=== PATIENT | male | born 1945 | race Asian ===

== ENCOUNTER 2020-11-03 15:59 | Inpatient (IN) | payer MEDICAID, OTHER, SELFPAY ==
--- NOTE | ~2020-11-03 | US_ITS ---
EXAMINATION: NONINVASIVE ASSESSMENT OF THE ARTERIES OF THE LEFT LOWER EXTREMITY Gordo Be MD CLINICAL INFORMATION: Cold left lower extremity with weak pulses TECHNIQUE: Left lower extremity duplex ultrasound was performed with velocity measurements and waveform analysis in the common femoral arteries, profunda femoris arteries, proximal mid and distal superficial femoral arteries, popliteal arteries and tibial vessels. This study was performed only at rest. COMPARISON: None FINDINGS: Velocities in cm/sec and phasicity as well as the presence of plaque are reported below: LEFT LEG: Mild to moderate plaque is present proximally. Biphasic flow is noted from the common femoral artery down to the distal SFA/popliteal. Thrombus appears to be present in the tibioperoneal trunk and peroneal artery with reconstituted posterior tibial artery with monophasic flow. Common Femoral: 107 Profunda Femoris: 48 Proximal SFA: 71 Mid SFA: 66 Distal SFA: 58 Popliteal: 26 Posterior tibial: 12.6 Peroneal artery: Acute thrombus is present in the peroneal artery with minimal monophasic flow demonstrated US/US arterial duplex LE LT IMPRESSION: Acute thrombus is present in the tibioperoneal trunk and the peroneal is essentially with monophasic flow noted in the distal reconstituted posterior tibial artery. Anterior tibial artery was not visualized.
--- NOTE | ~2020-11-03 | US_ITS ---
EXAMINATION: US VENOUS ULTRASOUND WITH DOPPLER LOWER EXTREMITY, LEFT CLINICAL INFORMATION: DVT question COMPARISON: None TECHNIQUE: Ultrasound of the deep veins is performed from the hip to the calf with compression sonography and color and pulse Doppler assessment. Spectral analysis with color-flow imaging is performed. FINDINGS: There is normal venous compression and respiratory variation and augmented flow. The visualized common femoral vein, superficial femoral vein, profunda femoral vein, popliteal vein, and the trifurcation region shows no evidence of deep venous thrombosis. There is no significant popliteal fossa cyst. If the patient's symptoms persist, followup ultrasound in 5 days 7 days might be of value to exclude proximal propagation from a non-visualized calf vein. US/US venous duplex LE LT IMPRESSION: No DVT demonstrated in the left lower extremity.
[2020-11-03 16:28] VITALS: BP 148/77; PULSE 113; RESP 16; TEMP 36.7; O2SAT 99; BMI 26.9
--- NOTE | 2020-11-03 16:29 | ED_ITS ---
HPI - Arrhythmia/Palpitations General Chief Complaint: Arrhythmia/Palpitations Stated Complaint: blood clot? Time Seen by Provider: 11/03/20 16:27 Source: patient and family (son interpreting) Mode of arrival: ambulatory Limitations: language barrier (Pt speaks philipino) History of Present Illness HPI narrative: Pt is 75yo M with past med hx of afib on plavix, stroke x2 2006, 2010, HTN, who has left lower leg pain x 2 days, concern for DVT, sent here from urgent care. Denies chest pain, sob or trouble breathing. Related Data Home Medications Medication Instructions Recorded Confirmed amlodipine 5 mg tablet 1 tab PO DAILY 11/03/20 11/03/20 atorvastatin 40 mg tablet 1 tab PO DAILY 11/03/20 11/03/20 clopidogrel 75 mg tablet 1 tab PO DAILY 11/03/20 11/03/20 diclofenac sodium 1 % topical gel 2 g TOPICAL TID 11/03/20 11/03/20 hydrochlorothiazide 12.5 mg capsule 1 cap PO DAILY 11/03/20 11/03/20 losartan 100 mg tablet 1 tab PO DAILY 11/03/20 11/03/20 Allergies Allergy/AdvReac Type Severity Reaction Status Date / Time No Known Allergies Allergy Verified 11/03/20 16:33 [facility] Past Medical History Medical History CVA (cerebral vascular accident) Hypertension Social History Social History (Updated 11/04/20 @ 05:40 by Michele Fernandez MD) Alcohol intake: never Patient Tobacco Use Status: Never used Tobacco Currently Displaying Signs/Symptoms of Drug Intoxication Withdrawal: No Advance Directives: No Advance Directives Information Provided: Yes Do you have thoughts of harming others: None Do you have a plan to hurt others: No Plan service: No Current occupational status: retired Physical Exam Vital Signs: Vital Signs: Last Vital Signs Temp 97.7 F 11/05/20 23:14 Pulse 71 11/05/20 23:14 Resp 15 11/05/20 23:14 BP 137/89 11/05/20 23:14 Pulse Ox 96 11/05/20 23:14 Body Mass Index 27.6 Course Course Course Narrative: Rapid medical exam, pt sent here from for DVT r/o, pt in afib with rvr, left lower ext cold with faint pulses, ordered labs, both art and venous US. HPI, labs and futher workup/eval to be done by ED provider. MDM - Arrhythmia/Palpitations Lab Data Result diagrams: 11/05/20 03:24 11/05/20 03:24 Labs: Lab Results 11/03/20 11/03/20 11/03/20 Range/Units 16:50 16:50 16:51 WBC 7.4 (4.8-10.8) X10*3/uL RBC 4.76 (4.60-5.80) X10*6/uL Hgb 14.9 (14.0-18.0) g/dl Hct 44.1 (42-52) % MCV 92.6 (80-98) fL MCH 31.3 (27.0-33.0) pg MCHC 33.8 (31.0-36.0) g/dl RDW 13.3 (11.0-16.0) % Plt Count 192 (160-400) X10*3/uL MPV 10.1 (9.4-12.4) fL Immature Gran % (Auto) 0.3 (0.0-0.4) % Neut % (Auto) 69.7 (45-73) % Lymph % (Auto) 21.8 (20-40) % [place] % (Auto) 6.9 (2-11) % Eos % (Auto) 0.8 (0-4) % Baso % (Auto) 0.5 (0-2) % Lymph # (Auto) 1.6 (1.2-4.9) X10*3/uL [place] # (Auto) 0.5 (0.1-1.2) X10*3/uL Eos # (Auto) 0.1 (0.0-0.4) X10*3/uL Baso # (Auto) 0.0 (0.0-0.2) X10*3/uL Abs Immat Gran (auto) 0.02 (0.00-0.03) X10*3/uL Absolute Neuts (auto) 5.2 (2.0-8.3) X10*3/uL Absolute Nucleated RBC 0.000 (0.0-0.012) X10*3/uL Nucleated RBC % (auto) 0.0 (0.0-0.2) /100WBC PT 11.3 (9.9-13.0) SEC INR 1.0 (0.9-1.1) APTT 27.4 (24.1-38.0) SEC D-Dimer 1342 NG/ML Sodium 140 (135-145) mmol/L Potassium 4.1 (3.3-5.1) mmol/L Chloride 104 (96-108) mmol/L Carbon Dioxide 25 (22-29) mmol/L Anion Gap 15 (12-20) BUN 18 H (9-16) mg/dL Creatinine 1.60 H (0.5-1.4) mg/dL Estim Creat Clear Calc 36.1 Estimated GFR 42 Random Glucose 117 H (60-115) mg/dL Calcium 9.7 (8.4-10.2) mg/dL Total Bilirubin 1.7 H (0.0-1.0) mg/dL AST 15 (5-37) U/L ALT 14 (0-40) U/L Alkaline Phosphatase 49 (39-117) U/L Troponin I High Sens (<3.5-35.0) ng/L B-Natriuretic Peptide (<100) pg/mL Total Protein 8.1 H (6.5-8.0) g/dL Albumin 4.8 (3.5-5.0) g/dL COVID-19 (GILLIAN) (Negative) COVID-19 Clin Com 11/03/20 11/03/20 Range/Units 16:51 23:53 WBC (4.8-10.8) X10*3/uL RBC (4.60-5.80) X10*6/uL Hgb (14.0-18.0) g/dl Hct (42-52) % MCV (80-98) fL MCH (27.0-33.0) pg MCHC (31.0-36.0) g/dl RDW (11.0-16.0) % Plt Count (160-400) X10*3/uL MPV (9.4-12.4) fL Immature Gran % (Auto) (0.0-0.4) % Neut % (Auto) (45-73) % Lymph % (Auto) (20-40) % Clinch % (Auto) (2-11) % Eos % (Auto) (0-4) % Baso % (Auto) (0-2) % Lymph # (Auto) (1.2-4.9) X10*3/uL [place]inch # (Auto) (0.1-1.2) X10*3/uL Eos # (Auto) (0.0-0.4) X10*3/uL Baso # (Auto) (0.0-0.2) X10*3/uL Abs Immat Gran (auto) (0.00-0.03) X10*3/uL Absolute Neuts (auto) (2.0-8.3) X10*3/uL Absolute Nucleated RBC (0.0-0.012) X10*3/uL Nucleated RBC % (auto) (0.0-0.2) /100WBC PT (9.9-13.0) SEC INR (0.9-1.1) APTT (24.1-38.0) SEC D-Dimer NG/ML Sodium (135-145) mmol/L Potassium (3.3-5.1) mmol/L Chloride (96-108) mmol/L Carbon Dioxide (22-29) mmol/L Anion Gap (12-20) BUN (9-16) mg/dL Creatinine (0.5-1.4) mg/dL Estim Creat Clear Calc Estimated GFR Random Glucose (60-115) mg/dL Calcium (8.4-10.2) mg/dL Total Bilirubin (0.0-1.0) mg/dL AST (5-37) U/L ALT (0-40) U/L Alkaline Phosphatase (39-117) U/L Troponin I High Sens 6.1 (<3.5-35.0) ng/L B-Natriuretic Peptide 244 H (<100) pg/mL Total Protein (6.5-8.0) g/dL Albumin (3.5-5.0) g/dL COVID-19 (GILLIAN) Negative (Negative) COVID-19 Clin Com See Note Discharge Plan Discharge Clinical Impression: Thrombosis of artery of left lower extremity Atrial fibrillation Qualifiers: Atrial fibrillation type: unspecified Qualified Code(s): I48.91 - Unspecified atrial fibrillation Patient Disposition: Admitted As Inpatient Interventions: Admission Worksheet (ED) Last Done: 11/04/20 10:34 Discharge Date/Time: 11/04/20 10:35
--- NOTE | 2020-11-03 16:38 | ECG_ITS ---
Test Reason : BLOOD CLOT Blood Pressure : / mmHG Vent. Rate : 117 BPM Atrial Rate : 125 BPM P-R Int : 000 ms QRS Dur : 084 ms QT Int : 332 ms P-R-T Axes : 000 062 004 degrees QTc Int : 463 ms Atrial fibrillation with rapid ventricular response Abnormal ECG No previous ECGs available Referred By: Shanta Perez Electronically Signed By:KATARZYNA NAIK
[2020-11-03 16:57] LABS: MANUAL DIFF FLAG NO
[2020-11-03 16:59] LABS: Basophils Percent Auto 0.5 % (0-2); Eosinophils Absolute Auto 0.1 X10*3/uL (0.0-0.4); Eosinophils Percent Auto 0.8 % (0-4); Hematocrit 44.1 % (42-52); Hemoglobin 14.9 g/dl (14.0-18.0); Imm Gran Abs Auto 0.02 X10*3/uL (0.00-0.03); Imm Gran Pct Auto 0.3 % (0.0-0.4); Lymphocytes Absolute Auto 1.6 X10*3/uL (1.2-4.9); Lymphocytes Percent Auto 21.8 % (20-40); Mean Corpuscular HGB Conc 33.8 g/dl (31.0-36.0); Mean Corpuscular Hemoglobin 31.3 pg (27.0-33.0); Mean Corpuscular Volume 92.6 fL (80-98); Mean Platelet Volume 10.1 fL (9.4-12.4); Monocytes Absolute Auto 0.5 X10*3/uL (0.1-1.2); Monocytes Percent Auto 6.9 % (2-11); Neutrophils Absolute Auto 5.2 X10*3/uL (2.0-8.3); Neutrophils Percent Auto 69.7 % (45-73); Platelet Count 192 X10*3/uL (160-400); Red Blood Count 4.76 X10*6/uL (4.60-5.80); Red Cell Distribution Width 13.3 % (11.0-16.0); White Blood Count 7.4 X10*3/uL (4.8-10.8)
[2020-11-03 17:15] LABS: D Dimer 1342 NG/ML
[2020-11-03 17:27] LABS: B Type Natriuretic Peptide 244 pg/mL (<100); Troponin-I High Sensitivity 6.1 ng/L (<3.5-35.0)
[2020-11-03 17:50] LABS: Alanine Aminotransferase 14 U/L (0-40); Albumin Level 4.8 g/dL (3.5-5.0); Alkaline Phosphatase 49 U/L (39-117); Anion Gap 15 (12-20); Aspartate Amino Transferase 15 U/L (5-37); Bilirubin Total 1.7 mg/dL (0.0-1.0); Blood Urea Nitrogen 18 mg/dL (9-16); Calcium 9.7 mg/dL (8.4-10.2); Carbon Dioxide 25 mmol/L (22-29); Chloride 104 mmol/L (96-108); Creatinine Clr Calc Pharmacy 36.1; Estimated Glomerular Filt Rate 42; Glucose Random 117 mg/dL (60-115); Potassium 4.1 mmol/L (3.3-5.1); Sodium 140 mmol/L (135-145); Total Protein 8.1 g/dL (6.5-8.0)
[2020-11-03 18:03] LABS: Prothrombin Time 11.3 SEC (9.9-13.0)
[2020-11-03 18:06] LABS: Partial Thromboplastin Time 27.4 SEC (24.1-38.0)
--- NOTE | 2020-11-03 21:15 | ED.ARRPALP ---
HPI - Arrhythmia/Palpitations General Chief Complaint: Arrhythmia/Palpitations Stated Complaint: blood clot? Time Seen by Provider: 11/03/20 16:27 Source: patient and family (son interpreting) Mode of arrival: ambulatory Limitations: language barrier (Pt speaks philipino) History of Present Illness HPI narrative: Patient history of hypertension CVA on Plavix since yesterday evening noticed pain in the left calf area felt like something ripping it off continued all day today went to see in walk-in clinic noticed to have cold left lower extremity without any cyanosis and atrial fibrillation which is new to the patient patient does not feel any palpitation no chest pain no shortness of breath patient able to feel touch and pain sensation on left leg able to move and ambulate Related Data Allergies Allergy/AdvReac Type Severity Reaction Status Date / Time No Known Allergies Allergy Verified 11/03/20 16:33 Review of Systems Review of Systems: Yes all other systems are reviewed and are negative [facility] Past Medical History Medical History Afib Hypertension Social History Social History Advance Directives: No Advance Directives Information Provided: Yes Physical Exam Vital Signs: Vital Signs: Last Vital Signs Temp 98.7 F 11/03/20 21:17 Pulse 119 H 11/03/20 21:17 Resp 18 11/03/20 21:17 BP 154/95 H 11/03/20 21:17 Pulse Ox 97 11/03/20 21:17 Body Mass Index 27.6 Appearance: Alert. Oriented X3. No acute distress. Eyes: PERRLA, No Nystagmus ENT: Pharynx normal. Oral Mucosa moist Neck: Normal inspection. Neck supple. CVS: Irregularly regular heart rate, no murmur gallop, Pulses normal. Respiratory: No respiratory distress. Equal air entry bilateral, no wheezing/rales/rhonchi Abdomen: Soft and nontender. Bowel sounds are present, no mass palpable Skin: Skin warm and dry. Normal skin color. Normal skin turgor. Extremities: No lower extremity edema. No calf tenderness left leg colder than the right absent dorsalis pedis and posterior tibial on left leg, no cyanosis Neuro: Oriented X 3. No motor deficit. No sensory deficit.No cerebellar signs , cranial nerves II-XII intact MDM - Arrhythmia/Palpitations MDM Narrative Medical decision making narrative: Patient new onset atrial fibrillation with acute left leg arterial thrombus on Plavix. Heart rate is controlled at this time. Case discussed with Dr. Gregory vascular surgeon no need for surgery for arterial thrombus in left leg managed by anticoagulation. Patient does not have any motor loss or sensory loss of left leg secondary to thrombus no cyanosis seems to have good collateral circulation. Will admit patient for further evaluation for patient's record his creatinine was 0.9 on 10/31 and today it is 1.6 etiology not clear , will admit patient Medical Records Attestation: I reviewed the patient's medical records. Lab Data Attestation: I reviewed the patient's lab results. Result diagrams: 11/03/20 16:50 11/03/20 16:50 Labs: Lab Results 11/03/20 11/03/20 11/03/20 Range/Units 16:50 16:50 16:51 WBC 7.4 (4.8-10.8) X10*3/uL RBC 4.76 (4.60-5.80) X10*6/uL Hgb 14.9 (14.0-18.0) g/dl Hct 44.1 (42-52) % MCV 92.6 (80-98) fL MCH 31.3 (27.0-33.0) pg MCHC 33.8 (31.0-36.0) g/dl RDW 13.3 (11.0-16.0) % Plt Count 192 (160-400) X10*3/uL MPV 10.1 (9.4-12.4) fL Immature Gran % (Auto) 0.3 (0.0-0.4) % Neut % (Auto) 69.7 (45-73) % Lymph % (Auto) 21.8 (20-40) % [place] % (Auto) 6.9 (2-11) % Eos % (Auto) 0.8 (0-4) % Baso % (Auto) 0.5 (0-2) % Lymph # (Auto) 1.6 (1.2-4.9) X10*3/uL [place] # (Auto) 0.5 (0.1-1.2) X10*3/uL Eos # (Auto) 0.1 (0.0-0.4) X10*3/uL Baso # (Auto) 0.0 (0.0-0.2) X10*3/uL Abs Immat Gran (auto) 0.02 (0.00-0.03) X10*3/uL Absolute Neuts (auto) 5.2 (2.0-8.3) X10*3/uL Absolute Nucleated RBC 0.000 (0.0-0.012) X10*3/uL Nucleated RBC % (auto) 0.0 (0.0-0.2) /100WBC PT 11.3 (9.9-13.0) SEC INR 1.0 (0.9-1.1) APTT 27.4 (24.1-38.0) SEC D-Dimer 1342 NG/ML Sodium 140 (135-145) mmol/L Potassium 4.1 (3.3-5.1) mmol/L Chloride 104 (96-108) mmol/L Carbon Dioxide 25 (22-29) mmol/L Anion Gap 15 (12-20) BUN 18 H (9-16) mg/dL Creatinine 1.60 H (0.5-1.4) mg/dL Estim Creat Clear Calc 36.1 Estimated GFR 42 Random Glucose 117 H (60-115) mg/dL Calcium 9.7 (8.4-10.2) mg/dL Total Bilirubin 1.7 H (0.0-1.0) mg/dL AST 15 (5-37) U/L ALT 14 (0-40) U/L Alkaline Phosphatase 49 (39-117) U/L Troponin I High Sens (<3.5-35.0) ng/L B-Natriuretic Peptide (<100) pg/mL Total Protein 8.1 H (6.5-8.0) g/dL Albumin 4.8 (3.5-5.0) g/dL 11/03/20 Range/Units 16:51 WBC (4.8-10.8) X10*3/uL RBC (4.60-5.80) X10*6/uL Hgb (14.0-18.0) g/dl Hct (42-52) % MCV (80-98) fL MCH (27.0-33.0) pg MCHC (31.0-36.0) g/dl RDW (11.0-16.0) % Plt Count (160-400) X10*3/uL MPV (9.4-12.4) fL Immature Gran % (Auto) (0.0-0.4) % Neut % (Auto) (45-73) % Lymph % (Auto) (20-40) % [place] % (Auto) (2-11) % Eos % (Auto) (0-4) % Baso % (Auto) (0-2) % Lymph # (Auto) (1.2-4.9) X10*3/uL [place] # (Auto) (0.1-1.2) X10*3/uL Eos # (Auto) (0.0-0.4) X10*3/uL Baso # (Auto) (0.0-0.2) X10*3/uL Abs Immat Gran (auto) (0.00-0.03) X10*3/uL Absolute Neuts (auto) (2.0-8.3) X10*3/uL Absolute Nucleated RBC (0.0-0.012) X10*3/uL Nucleated RBC % (auto) (0.0-0.2) /100WBC PT (9.9-13.0) SEC INR (0.9-1.1) APTT (24.1-38.0) SEC D-Dimer NG/ML Sodium (135-145) mmol/L Potassium (3.3-5.1) mmol/L Chloride (96-108) mmol/L Carbon Dioxide (22-29) mmol/L Anion Gap (12-20) BUN (9-16) mg/dL Creatinine (0.5-1.4) mg/dL Estim Creat Clear Calc Estimated GFR Random Glucose (60-115) mg/dL Calcium (8.4-10.2) mg/dL Total Bilirubin (0.0-1.0) mg/dL AST (5-37) U/L ALT (0-40) U/L Alkaline Phosphatase (39-117) U/L Troponin I High Sens 6.1 (<3.5-35.0) ng/L B-Natriuretic Peptide 244 H (<100) pg/mL Total Protein (6.5-8.0) g/dL Albumin (3.5-5.0) g/dL Imaging Data Arterial Doppler: Radiologist's impression: [address] [address] Ultrasound Report Signed Patient: Waqas Birch MR#: [id number] : 1945 Acct:[id number] Age/Sex: 75 / M ADM Date: 11/03/20 Loc: .ED Attending Dr: Ordering Physician: Shanta Perez PA-C Date of Service: 11/03/20 Procedure(s): US arterial duplex LE LT Accession Number(s): [id number] cc: Shanta Perez PA-C~ EXAMINATION: NONINVASIVE ASSESSMENT OF THE ARTERIES OF THE LEFT LOWER EXTREMITY Gordo Be MD CLINICAL INFORMATION: Cold left lower extremity with weak pulses TECHNIQUE: Left lower extremity duplex ultrasound was performed with velocity measurements and waveform analysis in the common femoral arteries, profunda femoris arteries, proximal mid and distal superficial femoral arteries, popliteal arteries and tibial vessels. This study was performed only at rest. COMPARISON: None FINDINGS: Velocities in cm/sec and phasicity as well as the presence of plaque are reported below: LEFT LEG: Mild to moderate plaque is present proximally. Biphasic flow is noted from the common femoral artery down to the distal SFA/popliteal. Thrombus appears to be present in the tibioperoneal trunk and peroneal artery with reconstituted posterior tibial artery with monophasic flow. Common Femoral: 107 Profunda Femoris: 48 Proximal SFA: 71 Mid SFA: 66 Distal SFA: 58 Popliteal: 26 Posterior tibial: 12.6 Peroneal artery: Acute thrombus is present in the peroneal artery with minimal monophasic flow demonstrated US/US arterial duplex LE LT IMPRESSION: Acute thrombus is present in the tibioperoneal trunk and the peroneal is essentially with monophasic flow noted in the distal reconstituted posterior tibial artery. Anterior tibial artery was not visualized. Dictated By: GORDO BE MD Signed By: <Electronically signed by GORDO BE MD in OV> 11/03/202023 DD/ 163 TD/TT:? [employer] Mechanic: SS ECG Data Attestation: I personally reviewed and interpreted this ECG as follows: Interpretation: Atrial fibrillation with ventricular rate 117 beats per minute no acute ST T wave changes no acute ischemia no previous EKG available Discharge Plan Discharge Clinical Impression: Thrombosis of artery of left lower extremity Atrial fibrillation Qualifiers: Atrial fibrillation type: unspecified Qualified Code(s): I48.91 - Unspecified atrial fibrillation Patient Disposition: Admitted As Inpatient
[2020-11-03 21:17] VITALS: BP 154/95; PULSE 119; RESP 18; TEMP 37.1; O2SAT 97
--- NOTE | 2020-11-03 22:24 | PC.NURSE ---
pt is a very difficult stick and u/s was used to find an IV. Heparin being hung at this time. MD aware of delay of Heparin.
[2020-11-03 22:29] VITALS: BMI 27.6
[2020-11-03] MEDS: Heparin Sodium,Porcine/1/2NS 25,000 UNIT/250 ML IV.SOLN 10.92 UNIT IVCONT (22:30)
[2020-11-03] MEDS: Heparin Sodium,Porcine 5,000 UNIT/ML VIAL 5000 UNIT IVPUSH (22:31)
--- NOTE | 2020-11-03 22:35 | PC.NURSE ---
md at bedside. Grandson concerned about translating for family member and is concerned about leaving.
--- NOTE | 2020-11-03 22:38 | PC.NURSE ---
JULY (DAUGHTER IN LAW) [phone]
[2020-11-03 23:35] VITALS: BP 152/78; PULSE 90; RESP 20; O2SAT 98
--- NOTE | 2020-11-03 23:36 | PC.NURSE ---
heparin continues to run on pump. pt on monitor with HR 90. pt denies any complaints and awaiting for room assignment. will continue to monitor pt.
[2020-11-04] VITALS (8 sets, daily range): BP systolic 118–153; BP diastolic 62–93; PULSE 62–107; RESP 17–18; TEMP 36.2–36.5; O2SAT 96–97; BMI 26.9
--- NOTE | 2020-11-04 | ECG_ITS ---
Test Reason : PAUSE Blood Pressure : / mmHG Vent. Rate : 081 BPM Atrial Rate : 197 BPM P-R Int : 000 ms QRS Dur : 094 ms QT Int : 392 ms P-R-T Axes : 000 053 -03 degrees QTc Int : 455 ms Atrial fibrillation Abnormal ECG When compared with ECG of 03-NOV-2020 17:17, No significant change was found Heart rate has decreased Referred By: Michele Fernandez Electronically Signed By:KATARZYNA NAIK
[2020-11-04 00:20] LABS: COVID-19 Test Negative (Negative); IDNOW Serial# 9DD0AD1C
--- NOTE | 2020-11-04 03:22 | CA_ITS ---
Transthoracic Echocardiogram Patient (Last, First, Middle): Waqas Birch, Gender: Male Date of : 1945 Age: 75 Procedure Date: 11/04/2020 Procedure Type: Transthoracic Echocardiogram Location: ICU Height: 170.18 cm Weight: 79.83 kg BSA: 1.92 m2 Heart Rate: bpm BP: 118 / 62 mmHg Wire Worker: Referring MD: Michele Fernandez MD Symptoms: new onset a fib Study Quality: Fair ECG Rhythm: Atrial Fibrillation Conclusions: - Normal left ventricular size and systolic function. - Normal right ventricular cavity size and systolic function. - The left atrium is mildly dilated. Findings Left Ventricle Normal left ventricular size and systolic function. There is moderately increased left ventricular wall thickness. The visually estimated ejection fraction is between 65-70%. There is no evidence of regional wall motion abnormalities. Diastolic function is indeterminate on the basis of available data. Right Ventricle Normal right ventricular cavity size and systolic function. Atria The left atrium is mildly dilated. Aortic Valve The aortic valve was not well visualized. There is no aortic valve stenosis. There is no aortic valve regurgitation. Mitral Valve Normal mitral valve structure and function. There is trace mitral valve regurgitation. There is no mitral valve stenosis. Pulmonic Valve The pulmonic valve is likely normal. Tricuspid Valve Normal tricuspid valve structure and function. There is no tricuspid valve regurgitation. Tricuspid regurgitation envelope is inadequate for calculation of right ventricular systolic pressure. Normal right atrial pressure. Great Vessels The aorta was not well visualized. The pulmonary artery was not well visualized. Venous The inferior vena cava is normal in size and collapses greater than 50% with inspiration. Pericardium/Pleural Prominent epicardial adipose tissue noted. There is no evidence of pericardial effusion. Prior Study Comparison No prior study available for comparison. Measurements 2D Linear Measurements IVSd: 1.23 0.6-0.9/0.6-1.0 cm LVIDd: 3.31 3.9-5.3/4.2-5.9 cm LVIDd Index: 1.72 2.4-3.2/2.2-3.1 cm/m2 LVIDs: 2.47 2.0-3.6 cm LVPWd: 1.26 0.7-1.1 cm LA Diam: 4.20 2.7-3.8/3.0-4.0 cm LAIDs Index: 2.19 1.5-2.3 cm/m2 LV Mass: 165.20 67-162/88-224 g LV Mass Index: 86.04 43-95/49-115 g/m2 LVOT Diam: 2.30 3.0+(-)1.3 cm Mitral Valve MV Pk E: 0.88 MV Decel Time: 77.00 E'Lateral: 12.60 E'Medial: 8.16 E/E' Med: 10.80 E/E' Lat: 7.00 PHT: 23.00 MVA PHT: 9.57 Decel [place]: 11.36 Aortic Valve AoV Pk Elias: 0.80 AoV Mn Elias: 0.48 AoV VTI: 0.18 AoV Pk Grad: 3.00 Aov Mn Grad: 1.00 WAYNE Cont.VTI: 3.08 LVOT LVOT Pk Elias: 0.57 LVOT Mn Elias: 0.32 LVOT VTI: 0.13 LVOT Pk Grad: 1.00 LVOT Mn Grad: 1.00 LVOT Diam: 2.30 LVOT Area: 4.15 Diastolic Function MV Pk E: 0.88 E'Medial: 8.16 E/E' Med: 10.80 E' Laterial: 12.60 E/E' Lat: 7.00 Pulmonary Valve PV Pk Elias: 0.73 Peak PV Grad: 2.00 Updated in Other Vendor System with Status of Final Adria Hightower MD electronically signed on 11/04/2020 2:44:25 PM with status of Final
--- NOTE | 2020-11-04 03:32 | PC.NURSE ---
PT C/O PAIN TO [facility]. DR. RALPH AWARE. HEPARIN CONTINUES TO RUN ON PUMP WITHOUT DIFFICULTY. PT MEDICATED FOR PAIN. PT AWAITING FOR ROOM ASSIGNMENT. REPEAT PTT HD BEING DRAWN AT 0430 PER PROTOCOL. WILL CONTINUE TO MONITOR PT.
[2020-11-04] MEDS: oxyCODONE HCl Immed Release 5 MG TABLET PO (03:50)
[2020-11-04] MEDS: Metoprolol Tartrate 12.5 MG HALFTAB PO (03:50)
[2020-11-04] MEDS: Lactated Ringers 1,000 ML 100 ML IVCONT ×3 (03:50→23:42)
--- NOTE | 2020-11-04 04:24 | PC.NURSE ---
LABS DRAWN TO LAB.
[2020-11-04 04:27] LABS: Basophils Absolute Auto 0.1 X10*3/uL (0.0-0.2); Basophils Percent Auto 0.6 % (0-2); Eosinophils Absolute Auto 0.2 X10*3/uL (0.0-0.4); Eosinophils Percent Auto 2.9 % (0-4); Hemoglobin 15.6 g/dl (14.0-18.0); Imm Gran Abs Auto 0.02 X10*3/uL (0.00-0.03); Imm Gran Pct Auto 0.2 % (0.0-0.4); Lymphocytes Absolute Auto 2.5 X10*3/uL (1.2-4.9); Lymphocytes Percent Auto 30.5 % (20-40); MANUAL DIFF FLAG NO; Mean Corpuscular HGB Conc 33.9 g/dl (31.0-36.0); Mean Corpuscular Hemoglobin 31.5 pg (27.0-33.0); Mean Corpuscular Volume 92.9 fL (80-98); Mean Platelet Volume 9.7 fL (9.4-12.4); Monocytes Absolute Auto 0.7 X10*3/uL (0.1-1.2); Monocytes Percent Auto 8.7 % (2-11); Neutrophils Absolute Auto 4.7 X10*3/uL (2.0-8.3); Neutrophils Percent Auto 57.1 % (45-73); Platelet Count 176 X10*3/uL (160-400); Red Blood Count 4.95 X10*6/uL (4.60-5.80); Red Cell Distribution Width 13.5 % (11.0-16.0); White Blood Count 8.2 X10*3/uL (4.8-10.8)
[2020-11-04 04:54] LABS: PTT Heparin Drip > 200.0 SEC (53-77.9)
--- NOTE | 2020-11-04 05:00 | PC.NURSE ---
PTT >200 HEPARIN ON HOLD AND PTT BEING REDRAWN IN [address] RYANNE PERKINS[address]
[2020-11-04 05:15] LABS: Anion Gap 17 (12-20); Blood Urea Nitrogen 16 mg/dL (9-16); Calcium 9.7 mg/dL (8.4-10.2); Carbon Dioxide 21 mmol/L (22-29); Chloride 106 mmol/L (96-108); Creatinine Clr Calc Pharmacy 47.1; Estimated Glomerular Filt Rate 52; Glucose Random 110 mg/dL (60-115); Potassium 3.9 mmol/L (3.3-5.1); Sodium 140 mmol/L (135-145)
--- NOTE | 2020-11-04 05:32 | P.HPHOSP_ITS ---
History of Present Illness Date of Service: 11/04/20 Chief Complaint: Leg pain This is a 75-year-old male with past medical history of hypertension, and CVA who presents to the hospital with complaints of left leg pain. Patient is [place] speaking and help is obtained by speaking to his son and grab son over the phone. According to them who live with the patient, patient started complaining of left leg pain the day prior to presentation, the pain was stabbing sharp 8/10, radiating down his lower leg, associated with no alleviating or exacerbating factors, patient denies any headache, change in vision, palpitations, chest pain, no abdominal pain nausea or vomiting, no diarrhea constipation, no urinary symptoms. Vital signs were significant for temp of 98?, heart rate of 113, respiratory rate of 16, blood pressure of 148/77, satting 99% on room air Labs reviewed found to be unremarkable except for an elevated total bili of 1.7 as well as BNP of 244, COVID-19 negative Arterial duplex of the lower extremity showed acute thrombus in the tibioperoneal trunk and the for annual with monophasic flow Venous duplex negative for DVT Vascular surgery was consulted, patient started on heparin drip and will be admit Review of Systems Review of Systems: Yes all other systems are reviewed and are negative [facility] Medical History (Updated 11/04/20 @ 05:44 by Michele Fernandez MD) CVA (cerebral vascular accident) Hypertension Social History (Updated 11/04/20 @ 05:40 by Michele Fernandez MD) Alcohol intake: never Patient Tobacco Use Status: Never used Tobacco Advance Directives: No Advance Directives Information Provided: Yes Meds Allergies Allergy/AdvReac Type Severity Reaction Status Date / Time No Known Allergies Allergy Verified 11/03/20 16:33 Active Medications: Current Medications Generic Name Dose Route Start Last Admin Trade Name Freq PRN Reason Stop Dose Admin Acetaminophen 650 mg 11/04/20 03:22 Acetaminophen 325 Mg Tablet PO Q6H PRN Pain, Mild (Pain Scale 1-3) Amlodipine Besylate 5 mg 11/04/20 09:00 Amlodipine Besylate 5 Mg Tablet PO DAILY [facility] Protocol Atorvastatin Calcium 40 mg 11/04/20 09:00 Atorvastatin Calcium 40 Mg Tablet PO DAILY [facility] Clopidogrel Bisulfate 75 mg 11/04/20 09:00 Clopidogrel Bisulfate 75 Mg Tablet PO DAILY [facility] Docusate Sodium 100 mg 11/04/20 03:22 Docusate Sodium 100 Mg Capsule PO DAILY PRN Constipation Heparin Sodium (Porcine) 3,100 unit 11/03/20 21:29 Heparin Sodium,Porcine 5,000 Unit/Ml Vial 40 unit/kg (3100 unit) IVPUSH PROTOCOL BOLUS PRN 40 unit/kg - Heparin Protocol Protocol Heparin Sodium (Porcine) 6,200 unit 11/03/20 21:31 Heparin Sodium,Porcine 5,000 Unit/Ml Vial 80 unit/kg (6200 unit) IVPUSH PROTOCOL BOLUS PRN 80 unit/kg - Heparin Protocol Protocol Hydrochlorothiazide 12.5 mg 11/04/20 09:00 Hydrochlorothiazide 12.5 Mg Tablet PO DAILY [facility] Protocol Heparin Sodium/Sodium Chloride 25,000 unit in 250 mls @ 0 mls/hr 11/03/20 21:30 11/03/20 22:30 IVCONT 14 units/kg/hr .Q0M KEO 10.92 mls/hr Administration Protocol Per Protocol Lactated Ringer's 1,000 mls @ 100 mls/hr 11/04/20 03:22 11/04/20 03:50 Lr IVCONT 100 mls/hr .Q10H KEO Administration Losartan Potassium 100 mg 11/04/20 09:00 Losartan Potassium 50 Mg Tablet PO DAILY [facility] Protocol Metoprolol Tartrate 12.5 mg 11/04/20 03:22 11/04/20 03:50 Metoprolol Tartrate 12.5 Mg Halftab PO 12.5 mg BID KEO Administration Protocol Ondansetron HCl 4 mg 11/04/20 03:22 Ondansetron Hcl 4 Mg/2 Ml Vial IVPUSH Q8H PRN Nausea and Vomiting Oxycodone HCl 5 mg 11/04/20 03:22 11/04/20 03:50 Oxycodone Hcl Immed Release 5 Mg Tablet PO 5 mg Q6H PRN Administration Pain, Severe (Pain Scale 7-10) Sodium Chloride 3 ml 11/04/20 08:00 0.9 % Sodium Chloride Flush 3 Ml Syringe IVFLUSH QSHIFT [facility] Home Medications Medication Instructions Recorded Confirmed Last Taken Type amlodipine 5 mg tablet 1 tab PO DAILY 11/03/20 11/03/20 Unknown History atorvastatin 40 mg tablet 1 tab PO DAILY 11/03/20 11/03/20 Unknown History clopidogrel 75 mg tablet 1 tab PO DAILY 11/03/20 11/03/20 Unknown History diclofenac sodium 1 % topical gel 2 g TOPICAL TID 11/03/20 11/03/20 Unknown History hydrochlorothiazide 12.5 mg capsule 1 cap PO DAILY 11/03/20 11/03/20 Unknown History losartan 100 mg tablet 1 tab PO DAILY 11/03/20 11/03/20 Unknown History Physical Exam Vital Signs and Narrative: Vital Signs: Last Vital Signs Temp 98.7 F 11/03/20 21:17 Pulse 88 11/04/20 03:50 Resp 20 11/03/20 23:35 BP 134/84 11/04/20 03:50 Pulse Ox 98 11/03/20 23:35 Body Mass Index 27.6 Const: General: cooperative and no acute distress Orientation/consciousness: patient oriented x3 Eyes: General: appearance normal, both eyes and all related structures Resp: Effort & Inspection: normal respiratory effort and able to speak in complete sentences Auscultation: clear to auscultation bilaterally Cardio: Rate: regular rate Rhythm: abnormal rhythm GI: Palpation (GI): Soft to palpation Auscultation: normal bowel sounds Skin: General skin exam: no rashes or lesions noted Neuro: General: patient oriented x3 Cognition (Neuro): normal cognition Extrem: Other: Left lower extremity colder than the rest of his extremities, no change in skin, pedal pulse minimally palpable General: Yes normal to inspection and Yes no pedal edema Results Labs CBC and Chem 7: 11/04/20 04:22 11/04/20 04:22 Labs: Laboratory Results - last 24 hr 11/03/20 11/03/20 11/03/20 16:50 16:50 16:51 MCV 92.6 MCH 31.3 MCHC 33.8 RDW 13.3 Plt Count 192 MPV 10.1 Immature Gran % (Auto) 0.3 Neut % (Auto) 69.7 Lymph % (Auto) 21.8 [place] % (Auto) 6.9 Eos % (Auto) 0.8 Baso % (Auto) 0.5 Lymph # (Auto) 1.6 [place] # (Auto) 0.5 Eos # (Auto) 0.1 Baso # (Auto) 0.0 Abs Immat Gran (auto) 0.02 Absolute Neuts (auto) 5.2 Absolute Nucleated RBC 0.000 Nucleated RBC % (auto) 0.0 PT 11.3 INR 1.0 APTT 27.4 PTT (Heparin Protocol) D-Dimer 1342 Anion Gap 15 Estim Creat Clear Calc 36.1 Estimated GFR 42 Random Glucose 117 H Calcium 9.7 Total Bilirubin 1.7 H AST 15 ALT 14 Alkaline Phosphatase 49 Troponin I High Sens B-Natriuretic Peptide Total Protein 8.1 H Albumin 4.8 COVID-19 ([facility]) COVID-19 Clin Com 11/03/20 11/03/20 11/04/20 16:51 23:53 04:22 MCV 92.9 MCH 31.5 MCHC 33.9 RDW 13.5 Plt Count 176 MPV 9.7 Immature Gran % (Auto) 0.2 Neut % (Auto) 57.1 Lymph % (Auto) 30.5 [place] % (Auto) 8.7 Eos % (Auto) 2.9 Baso % (Auto) 0.6 Lymph # (Auto) 2.5 [place] # (Auto) 0.7 Eos # (Auto) 0.2 Baso # (Auto) 0.1 Abs Immat Gran (auto) 0.02 Absolute Neuts (auto) 4.7 Absolute Nucleated RBC 0.000 Nucleated RBC % (auto) 0.0 PT INR APTT PTT (Heparin Protocol) D-Dimer Anion Gap Estim Creat Clear Calc Estimated GFR Random Glucose Calcium Total Bilirubin AST ALT Alkaline Phosphatase Troponin I High Sens 6.1 B-Natriuretic Peptide 244 H Total Protein Albumin COVID-19 ([facility]) Negative COVID-19 Clin Com See Note 11/04/20 11/04/20 04:22 04:22 MCV MCH MCHC RDW Plt Count MPV Immature Gran % (Auto) Neut % (Auto) Lymph % (Auto) [place] % (Auto) Eos % (Auto) Baso % (Auto) Lymph # (Auto) [place] # (Auto) Eos # (Auto) Baso # (Auto) Abs Immat Gran (auto) Absolute Neuts (auto) Absolute Nucleated RBC Nucleated RBC % (auto) PT INR APTT PTT (Heparin Protocol) > 200.0 H* D-Dimer Anion Gap 17 Estim Creat Clear Calc 47.1 Estimated GFR 52 Random Glucose 110 Calcium 9.7 Total Bilirubin AST ALT Alkaline Phosphatase Troponin I High Sens B-Natriuretic Peptide Total Protein Albumin COVID-19 ([facility]) COVID-19 Clin Com ECG Interpretation: Atrial fibrillation with rapid ventricular response with a heart rate of 117 Imaging Radiologist's Impressions: Impressions Duplex Scan Lower Extremity Artery 11/03/20 16:33 IMPRESSION: Acute thrombus is present in the tibioperoneal trunk and the peroneal is essentially with monophasic flow noted in the distal reconstituted posterior tibial artery. Anterior tibial artery was not visualized. Venous Duplex 11/03/20 16:33 IMPRESSION: No DVT demonstrated in the left lower extremity. Assessment and Plan (1) Atrial fibrillation: Qualifiers: Atrial fibrillation type: unspecified Qualified Code(s): I48.91 - Unspecified atrial fibrillation Status: Acute (2) Thrombosis of artery of left lower extremity: Status: Acute 75-year-old male who presents to the hospital with left leg pain found to have thrombus of the artery of left lower ext and a new onset AFib # thrombosis of artery of left lower extreme - most likely secondary to his AFib - patient started on heparin GGT - hemodynamically stay - vascular surgery consult # new onset AFib - unclear etiology denies any chest pain, has slightly elevated BNP with no shortness of breath, no orthopnea or PND - troponin of 6.1 - EKG showing atrial fibrillation with no ST T wave changes - was given 12.5 mg of Lopressor with patient becoming bradycardic and having short pauses - will obtain echocardiogram - stop metoprolol - consult cardiology # hypertension - continue amlodipine and losartan # history of CVA - continue Plavix - discussion she would be made for continuing specially given the patient will need anticoagulation DVT prophylaxis: Heparin GGT Quality Stroke Does the patient have a stroke diagnosis?: No VTE Prior VTE?: No VTE Risk Level:: Medical - moderate - high VTE Device Contraindication: Treatment Not Indicated VTE Drug Contraindication: N/A - Med Ordered
--- NOTE | 2020-11-04 06:12 | PC.NURSE ---
PT'S HR DROPS TO 33'S TO 45'S. DR. PEARL AWARE OF HR. PT REMAINS SLEEPING, WAKES TO VOICE. RESPIRATIONS EASY, N/L. SKIN W/D.
[2020-11-04 07:07] LABS: PTT Heparin Drip 96.3 SEC (53-77.9)
--- NOTE | 2020-11-04 07:55 | PC.NURSE ---
PTT REMAINS ELEVATED>93. LAB CALLED FOR REDRAW
[2020-11-04 08:25] LABS: PTT Heparin Drip 51.1 SEC (53-77.9)
[2020-11-04] MEDS: Atorvastatin Calcium 40 MG TABLET PO (08:41)
[2020-11-04] MEDS: Losartan Potassium 50 MG TABLET 100 MG PO (08:41)
[2020-11-04] MEDS: hydroCHLOROthiazide 12.5 MG TABLET PO (08:41)
[2020-11-04] MEDS: Clopidogrel Bisulfate 75 MG TABLET PO (08:41)
[2020-11-04] MEDS: amLODIPine Besylate 5 MG TABLET PO (08:42)
--- NOTE | 2020-11-04 08:50 | MHC.CM.PN ---
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 BIGG SAYS THAT THE PATIENT IS CONCERNED ABOUT A HOSPITAL BILL BECAUSE HE HAD A $400 BILL FROM HIS LAST HOSPITAL VISIT. SON DOES NOT FEEL THE NEED FOR ASSISTANCE FROM [facility], BECAUSE PATIENT IS ONLY ELIGIBLE FOR LIMITED [place]. PCP VERIFIED. SON AND SON'S TRANSPORT PATIENT WHERE HE NEEDS TO GO. 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 PATIENT'S GRANDSON, ENRIQUETA BAKER ([phone]) IS AUTHORIZED BY PATIENT AND SON TO SPEAK ON PATIENT'S BEHALF. FAMILY IS CONCERNED ABOUT ANY MEDICATIONS THAT PATIENT MAY NEED, AND HOPING THAT SON OR GRANDSON CAN BE PRESENT DURING DC INSTRUCTIONS.
--- NOTE | 2020-11-04 09:11 | MHC.CM.PN ---
MADALYN BELL STATES THAT PATIENT DOES NOT HAVE A HCP, BUT FAMILY WILL BE INTERESTED IN ASSISTING WITH COMPLETION AT TIME OF DISCHARGE.
--- NOTE | 2020-11-04 11:05 | PM.DS ---
DS: Providers Provider Date of admission: 11/04/20 00:18 Primary care physician: Gus Prieto MD Consults: 11/04/20 03:22 Consult to Vascular Surgery Routine Consulting Provider: Ras Gregory Reason for consultation: arterial clot Has provider been notified: Yes 11/04/20 05:31 Consult to Cardiology Routine Consulting Provider: Adria Hightower Reason for consultation: new onset a fib Has provider been notified: No DS: Diagnosis Discharge Diagnosis (1) Atrial fibrillation: Status: Acute (2) Thrombosis of artery of left lower extremity: Status: Acute DS: Medications Discharge Medications Home Medications: Home Medications Medication Instructions Recorded Confirmed amlodipine 5 mg tablet 1 tab PO DAILY 11/03/20 11/03/20 atorvastatin 40 mg tablet 1 tab PO DAILY 11/03/20 11/03/20 clopidogrel 75 mg tablet 1 tab PO DAILY 11/03/20 11/03/20 diclofenac sodium 1 % topical gel 2 g TOPICAL TID 11/03/20 11/03/20 hydrochlorothiazide 12.5 mg capsule 1 cap PO DAILY 11/03/20 11/03/20 losartan 100 mg tablet 1 tab PO DAILY 11/03/20 11/03/20 DS: Summary Time Spent with Patient Time attestation: Total time spent providing and/or coordinating discharge services: Quality: Stroke Does the patient have a stroke diagnosis?: Yes Physical Exam Vital Signs: Vital Signs: Last Vital Signs Temp 98.7 F 11/03/20 21:17 Pulse 72 11/04/20 08:42 Resp 18 11/04/20 05:45 BP 126/75 11/04/20 08:42 Pulse Ox 98 11/03/20 23:35 Body Mass Index 26.9 DS: Data Data Completed and Pending Labs on day of discharge: Laboratory Results - last 24 hr 11/03/20 11/03/20 11/03/20 16:50 16:50 16:51 WBC 7.4 RBC 4.76 Hgb 14.9 Hct 44.1 MCV 92.6 MCH 31.3 MCHC 33.8 RDW 13.3 Plt Count 192 MPV 10.1 Immature Gran % (Auto) 0.3 Neut % (Auto) 69.7 Lymph % (Auto) 21.8 [place] % (Auto) 6.9 Eos % (Auto) 0.8 Baso % (Auto) 0.5 Lymph # (Auto) 1.6 [place] # (Auto) 0.5 Eos # (Auto) 0.1 Baso # (Auto) 0.0 Abs Immat Gran (auto) 0.02 Absolute Neuts (auto) 5.2 Absolute Nucleated RBC 0.000 Nucleated RBC % (auto) 0.0 PT 11.3 INR 1.0 APTT 27.4 PTT (Heparin Protocol) D-Dimer 1342 Sodium 140 Potassium 4.1 Chloride 104 Carbon Dioxide 25 Anion Gap 15 BUN 18 H Creatinine 1.60 H Estim Creat Clear Calc 36.1 Estimated GFR 42 Random Glucose 117 H Calcium 9.7 Total Bilirubin 1.7 H AST 15 ALT 14 Alkaline Phosphatase 49 Troponin I High Sens B-Natriuretic Peptide Total Protein 8.1 H Albumin 4.8 COVID-19 ([facility]) COVID-19 Clin Com 11/03/20 11/03/20 11/04/20 16:51 23:53 04:22 WBC 8.2 RBC 4.95 Hgb 15.6 Hct 46.0 MCV 92.9 MCH 31.5 MCHC 33.9 RDW 13.5 Plt Count 176 MPV 9.7 Immature Gran % (Auto) 0.2 Neut % (Auto) 57.1 Lymph % (Auto) 30.5 [place] % (Auto) 8.7 Eos % (Auto) 2.9 Baso % (Auto) 0.6 Lymph # (Auto) 2.5 [place] # (Auto) 0.7 Eos # (Auto) 0.2 Baso # (Auto) 0.1 Abs Immat Gran (auto) 0.02 Absolute Neuts (auto) 4.7 Absolute Nucleated RBC 0.000 Nucleated RBC % (auto) 0.0 PT INR APTT PTT (Heparin Protocol) D-Dimer Sodium Potassium Chloride Carbon Dioxide Anion Gap BUN Creatinine Estim Creat Clear Calc Estimated GFR Random Glucose Calcium Total Bilirubin AST ALT Alkaline Phosphatase Troponin I High Sens 6.1 B-Natriuretic Peptide 244 H Total Protein Albumin COVID-19 ([facility]) Negative COVID-19 Clin Com See Note 11/04/20 11/04/20 11/04/20 04:22 04:22 06:47 WBC RBC Hgb Hct MCV MCH MCHC RDW Plt Count MPV Immature Gran % (Auto) Neut % (Auto) Lymph % (Auto) [place] % (Auto) Eos % (Auto) Baso % (Auto) Lymph # (Auto) [place] # (Auto) Eos # (Auto) Baso # (Auto) Abs Immat Gran (auto) Absolute Neuts (auto) Absolute Nucleated RBC Nucleated RBC % (auto) PT INR APTT PTT (Heparin Protocol) > 200.0 H* 96.3 H D D-Dimer Sodium 140 Potassium 3.9 Chloride 106 Carbon Dioxide 21 L Anion Gap 17 BUN 16 Creatinine 1.33 Estim Creat Clear Calc 47.1 Estimated GFR 52 Random Glucose 110 Calcium 9.7 Total Bilirubin AST ALT Alkaline Phosphatase Troponin I High Sens B-Natriuretic Peptide Total Protein Albumin COVID-19 ([facility]) COVID-19 [employer] Com 11/04/20 08:12 WBC RBC Hgb Hct MCV MCH MCHC RDW Plt Count MPV Immature Gran % (Auto) Neut % (Auto) Lymph % (Auto) [place] % (Auto) Eos % (Auto) Baso % (Auto) Lymph # (Auto) [place] # (Auto) Eos # (Auto) Baso # (Auto) Abs Immat Gran (auto) Absolute Neuts (auto) Absolute Nucleated RBC Nucleated RBC % (auto) PT INR APTT PTT (Heparin Protocol) 51.1 L D D-Dimer Sodium Potassium Chloride Carbon Dioxide Anion Gap BUN Creatinine Estim Creat Clear Calc Estimated GFR Random Glucose Calcium Total Bilirubin AST ALT Alkaline Phosphatase Troponin I High Sens B-Natriuretic Peptide Total Protein Albumin COVID-19 ([facility]) COVID-19 Clin Com Discharge Plan Discharge Referrals: Gus Hua MD [Primary Care Provider] - 1 Week Discharge Medications: No Action atorvastatin 40 mg tablet 1 tab PO DAILY RF: 0 clopidogrel 75 mg tablet 1 tab PO DAILY RF: 0 amlodipine 5 mg tablet 1 tab PO DAILY RF: 0 hydrochlorothiazide 12.5 mg capsule 1 cap PO DAILY RF: 0 losartan 100 mg tablet 1 tab PO DAILY RF: 0 diclofenac sodium 1 % gel 2 g topical TID RF: 0
--- NOTE | 2020-11-04 13:41 | PM.CNCAR ---
History of Present Illness History of Present Illness Date of Service: 11/05/20 Requesting physician: Andres Mcdermott Chief complaint: Afib, acute limb ischemia Narrative: 75-year-old gentleman from [facility] with background history of hypertension, CVA and reported history of atrial fibrillation by the son as per discussion with RN. He is presenting with left leg pain. He has been noticed to be in atrial fibrillation with rapid ventricular response. Arterial duplex has shown acute thrombus in the tibioperoneal trunk. He has been started on heparin drip. He has been followed by vascular surgery also. History is limited due to language barrier. He reportedly is complaining less pain since heparin to started. Telemetry reviewed and his heart rates are anywhere between 90s to 120s. [facility]LY [facility] Past Medical History Medical History (Updated 11/04/20 @ 05:44 by Michele Fernandez MD) CVA (cerebral vascular accident) Hypertension Social History Social History (Updated 11/04/20 @ 05:40 by Michele Fernandez MD) Alcohol intake: never Patient Tobacco Use Status: Never used Tobacco Currently Displaying Signs/Symptoms of Drug Intoxication Withdrawal: No Advance Directives: No Advance Directives Information Provided: Yes Do you have thoughts of harming others: None Do you have a plan to hurt others: No Plan service: No Current occupational status: retired Meds Allergies Allergy/AdvReac Type Severity Reaction Status Date / Time No Known Allergies Allergy Verified 11/03/20 16:33 Active Medications: Current Medications Generic Name Dose Route Start Last Admin Trade Name Freq PRN Reason Stop Dose Admin Acetaminophen 650 mg 11/04/20 03:22 Acetaminophen 325 Mg Tablet PO Q6H PRN Pain, Mild (Pain Scale 1-3) Amlodipine Besylate 5 mg 11/04/20 09:00 11/04/20 08:42 Amlodipine Besylate 5 Mg Tablet PO 5 mg DAILY KEO Administration Protocol Atorvastatin Calcium 40 mg 11/04/20 09:00 11/04/20 08:41 Atorvastatin Calcium 40 Mg Tablet PO 40 mg DAILY KEO Administration Clopidogrel Bisulfate 75 mg 11/04/20 09:00 11/04/20 08:41 Clopidogrel Bisulfate 75 Mg Tablet PO 75 mg DAILY KEO Administration Docusate Sodium 100 mg 11/04/20 03:22 Docusate Sodium 100 Mg Capsule PO DAILY PRN Constipation Heparin Sodium (Porcine) 3,100 unit 11/03/20 21:29 Heparin Sodium,Porcine 5,000 Unit/Ml Vial 40 unit/kg (3100 unit) IVPUSH PROTOCOL BOLUS PRN 40 unit/kg - Heparin Protocol Protocol Heparin Sodium (Porcine) 6,200 unit 11/03/20 21:31 Heparin Sodium,Porcine 5,000 Unit/Ml Vial 80 unit/kg (6200 unit) IVPUSH PROTOCOL BOLUS PRN 80 unit/kg - Heparin Protocol Protocol Hydrochlorothiazide 12.5 mg 11/04/20 09:00 11/04/20 08:41 Hydrochlorothiazide 12.5 Mg Tablet PO 12.5 mg DAILY KEO Administration Protocol Heparin Sodium/Sodium Chloride 25,000 unit in 250 mls @ 0 mls/hr 11/03/20 21:30 11/04/20 08:56 IVCONT 10 units/kg/hr .Q0M KEO 7.8 mls/hr Titration Protocol Per Protocol Lactated Ringer's 1,000 mls @ 100 mls/hr 11/04/20 03:22 11/04/20 03:50 Lr IVCONT 100 mls/hr .Q10H KEO Administration Losartan Potassium 100 mg 11/04/20 09:00 11/04/20 08:41 Losartan Potassium 50 Mg Tablet PO 100 mg DAILY KEO Administration Protocol Ondansetron HCl 4 mg 11/04/20 03:22 Ondansetron Hcl 4 Mg/2 Ml Vial IVPUSH Q8H PRN Nausea and Vomiting Oxycodone HCl 5 mg 11/04/20 03:22 11/04/20 03:50 Oxycodone Hcl Immed Release 5 Mg Tablet PO 5 mg Q6H PRN Administration Pain, Severe (Pain Scale 7-10) Sodium Chloride 3 ml 11/04/20 08:00 11/04/20 08:30 0.9 % Sodium Chloride Flush 3 Ml Syringe IVFLUSH Not Given QSHIFT [facility] Home Medications Medication Instructions Recorded Confirmed Last Taken Type amlodipine 5 mg tablet 1 tab PO DAILY 11/03/20 11/03/20 Unknown History atorvastatin 40 mg tablet 1 tab PO DAILY 11/03/20 11/03/20 Unknown History clopidogrel 75 mg tablet 1 tab PO DAILY 11/03/20 11/03/20 Unknown History diclofenac sodium 1 % topical gel 2 g TOPICAL TID 11/03/20 11/03/20 Unknown History hydrochlorothiazide 12.5 mg capsule 1 cap PO DAILY 11/03/20 11/03/20 Unknown History losartan 100 mg tablet 1 tab PO DAILY 11/03/20 11/03/20 Unknown History Physical Exam Vital Signs: Vital Signs: Last Vital Signs Temp 97.7 F 11/04/20 11:27 Pulse 107 H 11/04/20 11:27 Resp 18 11/04/20 11:27 BP 153/93 H 11/04/20 11:27 Pulse Ox 96 11/04/20 11:27 Body Mass Index 26.9 GENERAL APPEARANCE: in no acute distress, pleasant. NECK: no carotid bruit, no jugular venous distention. SKIN: no suspicious lesions, warm and dry. HEART: no murmurs, irregular rate and rhythm. LUNGS: clear to auscultation bilaterally. ABDOMEN: soft, nontender. EXTREMITIES: no edema. PERIPHERAL PULSES: No dorsalis pedis or posterior tibial pulse is palpable on left foot. NEUROLOGIC: No gross deficits, AAO X 3 Results Labs and Meds Result diagrams: 11/05/20 03:24 11/05/20 03:24 Lab results: Laboratory Results - last 24 hr 11/03/20 11/03/20 11/03/20 16:50 16:50 16:51 WBC 7.4 RBC 4.76 Hgb 14.9 Hct 44.1 MCV 92.6 MCH 31.3 MCHC 33.8 RDW 13.3 Plt Count 192 MPV 10.1 Immature Gran % (Auto) 0.3 Neut % (Auto) 69.7 Lymph % (Auto) 21.8 [place] % (Auto) 6.9 Eos % (Auto) 0.8 Baso % (Auto) 0.5 Lymph # (Auto) 1.6 [place] # (Auto) 0.5 Eos # (Auto) 0.1 Baso # (Auto) 0.0 Abs Immat Gran (auto) 0.02 Absolute Neuts (auto) 5.2 Absolute Nucleated RBC 0.000 Nucleated RBC % (auto) 0.0 PT 11.3 INR 1.0 APTT 27.4 PTT (Heparin Protocol) D-Dimer 1342 Sodium 140 Potassium 4.1 Chloride 104 Carbon Dioxide 25 Anion Gap 15 BUN 18 H Creatinine 1.60 H Estim Creat Clear Calc 36.1 Estimated GFR 42 Random Glucose 117 H Calcium 9.7 Total Bilirubin 1.7 H AST 15 ALT 14 Alkaline Phosphatase 49 Troponin I High Sens B-Natriuretic Peptide Total Protein 8.1 H Albumin 4.8 COVID-19 (GILLIAN) COVID-19 Clin Com 11/03/20 11/03/20 11/04/20 16:51 23:53 04:22 WBC 8.2 RBC 4.95 Hgb 15.6 Hct 46.0 MCV 92.9 MCH 31.5 MCHC 33.9 RDW 13.5 Plt Count 176 MPV 9.7 Immature Gran % (Auto) 0.2 Neut % (Auto) 57.1 Lymph % (Auto) 30.5 [place] % (Auto) 8.7 Eos % (Auto) 2.9 Baso % (Auto) 0.6 Lymph # (Auto) 2.5 [place] # (Auto) 0.7 Eos # (Auto) 0.2 Baso # (Auto) 0.1 Abs Immat Gran (auto) 0.02 Absolute Neuts (auto) 4.7 Absolute Nucleated RBC 0.000 Nucleated RBC % (auto) 0.0 PT INR APTT PTT (Heparin Protocol) D-Dimer Sodium Potassium Chloride Carbon Dioxide Anion Gap BUN Creatinine Estim Creat Clear Calc Estimated GFR Random Glucose Calcium Total Bilirubin AST ALT Alkaline Phosphatase Troponin I High Sens 6.1 B-Natriuretic Peptide 244 H Total Protein Albumin COVID-19 (GILLIAN) Negative COVID-19 [place] Com See Note 11/04/20 11/04/20 11/04/20 04:22 04:22 06:47 WBC RBC Hgb Hct MCV MCH MCHC RDW Plt Count MPV Immature Gran % (Auto) Neut % (Auto) Lymph % (Auto) [place] % (Auto) Eos % (Auto) Baso % (Auto) Lymph # (Auto) [place] # (Auto) Eos # (Auto) Baso # (Auto) Abs Immat Gran (auto) Absolute Neuts (auto) Absolute Nucleated RBC Nucleated RBC % (auto) PT INR APTT PTT (Heparin Protocol) > 200.0 H* 96.3 H D D-Dimer Sodium 140 Potassium 3.9 Chloride 106 Carbon Dioxide 21 L Anion Gap 17 BUN 16 Creatinine 1.33 Estim Creat Clear Calc 47.1 Estimated GFR 52 Random Glucose 110 Calcium 9.7 Total Bilirubin AST ALT Alkaline Phosphatase Troponin I High Sens B-Natriuretic Peptide Total Protein Albumin COVID-19 (GILLIAN) COVID-19 Clin Com 11/04/20 08:12 WBC RBC Hgb Hct MCV MCH MCHC RDW Plt Count MPV Immature Gran % (Auto) Neut % (Auto) Lymph % (Auto) [place] % (Auto) Eos % (Auto) Baso % (Auto) Lymph # (Auto) [place] # (Auto) Eos # (Auto) Baso # (Auto) Abs Immat Gran (auto) Absolute Neuts (auto) Absolute Nucleated RBC Nucleated RBC % (auto) PT INR APTT PTT (Heparin Protocol) 51.1 L D D-Dimer Sodium Potassium Chloride Carbon Dioxide Anion Gap BUN Creatinine Estim Creat Clear Calc Estimated GFR Random Glucose Calcium Total Bilirubin AST ALT Alkaline Phosphatase Troponin I High Sens B-Natriuretic Peptide Total Protein Albumin COVID-19 (GILLIAN) COVID-19 Clin Com Imaging Radiologist's impression: Impressions Duplex Scan Lower Extremity Artery 11/03/20 16:33 IMPRESSION: Acute thrombus is present in the tibioperoneal trunk and the peroneal is essentially with monophasic flow noted in the distal reconstituted posterior tibial artery. Anterior tibial artery was not visualized. Venous Duplex 11/03/20 16:33 IMPRESSION: No DVT demonstrated in the left lower extremity. Assessment and Plan (1) Atrial fibrillation: Qualifiers: Atrial fibrillation type: unspecified Qualified Code(s): I48.91 - Unspecified atrial fibrillation Status: Acute (2) Thrombosis of artery of left lower extremity: Status: Acute 75 year old gentleman presenting with leg pain and acute limb ischemia. Also noted to be in Afib. Likely embolic occlusion of TP trunk. On Heparin gtt for Afib and limb ischemia. Will review echo. Beta blockers if HR uncontrolled. Would not try amiodarone. We will follow along with you. Procedures Date of Service Date of Service: 11/05/20
[2020-11-04 15:02] LABS: PTT Heparin Drip 67.2 SEC (53-77.9)
--- NOTE | 2020-11-04 15:14 | P.CONGS_ITS ---
History of Present Illness Consult details Consult date: 11/04/20 Narrative: Very pleasant 75-year-old [place] gentleman was referred for a thromboembolic event. He reported new onset of pain nearly 2-3 days prior to admission. It was discovered upon his visit to the emergency room that he had new onset AFib. He had arterial ultrasound which did demonstrate acute thrombus of the below-knee vessels. He has had no significant complaints. Pain has been reasonably controlled. Of note motor and sensation has been intact since my discussion with the emergency room yesterday. I did visit him at 07:30 this morning and again at lunchtime today. During that interim his leg continues to do well pain well controlled motor and sensation well intact. Review of Systems Review of Systems: Yes all other systems are reviewed and are negative Constitutional: Constitutional: Reports no additional constitutional complaints ENT: Reports Normal hearing present Cardiovascular: Cardiovascular: Denies chest pain, Denies chest pain at rest, Denies chest pain with activity and Denies pedal edema Respiratory: Respiratory: Denies cough Gastrointestinal: Gastrointestinal: Denies abdominal pain Musculoskeletal: Musculoskeletal: Denies abnormal gait, Denies muscle cramps and Denies radiating pain into limb Integumentary/Breasts: Skin/Breast: Denies skin ulcer and Denies wounds Neurologic: Reports Normal hearing present and Denies abnormal gait Psychiatric: Psychiatric: Reports no additional psychiatric complaints PMFSH Past Medical History Medical History (Updated 11/04/20 @ 05:44 by Michele Fernandez MD) CVA (cerebral vascular accident) Hypertension Social History Social History (Updated 11/04/20 @ 05:40 by Michele Fernandez MD) Alcohol intake: never Patient Tobacco Use Status: Never used Tobacco Advance Directives: No Advance Directives Information Provided: Yes service: No Current occupational status: retired [employer] Allergies Allergy/AdvReac Type Severity Reaction Status Date / Time No Known Allergies Allergy Verified 11/03/20 16:33 Active Medications: Current Medications Generic Name Dose Route Start Last Admin Trade Name Freq PRN Reason Stop Dose Admin Acetaminophen 650 mg 11/04/20 03:22 Acetaminophen 325 Mg Tablet PO Q6H PRN Pain, Mild (Pain Scale 1-3) Amlodipine Besylate 5 mg 11/04/20 09:00 11/04/20 08:42 Amlodipine Besylate 5 Mg Tablet PO 5 mg DAILY KEO Administration Protocol Atorvastatin Calcium 40 mg 11/04/20 09:00 11/04/20 08:41 Atorvastatin Calcium 40 Mg Tablet PO 40 mg DAILY KEO Administration Clopidogrel Bisulfate 75 mg 11/04/20 09:00 11/04/20 08:41 Clopidogrel Bisulfate 75 Mg Tablet PO 75 mg DAILY KEO Administration Docusate Sodium 100 mg 11/04/20 03:22 Docusate Sodium 100 Mg Capsule PO DAILY PRN Constipation Heparin Sodium (Porcine) 3,100 unit 11/03/20 21:29 Heparin Sodium,Porcine 5,000 Unit/Ml Vial 40 unit/kg (3100 unit) IVPUSH PROTOCOL BOLUS PRN 40 unit/kg - Heparin Protocol Protocol Heparin Sodium (Porcine) 6,200 unit 11/03/20 21:31 Heparin Sodium,Porcine 5,000 Unit/Ml Vial 80 unit/kg (6200 unit) IVPUSH PROTOCOL BOLUS PRN 80 unit/kg - Heparin Protocol Protocol Hydrochlorothiazide 12.5 mg 11/04/20 09:00 11/04/20 08:41 Hydrochlorothiazide 12.5 Mg Tablet PO 12.5 mg DAILY KEO Administration Protocol Heparin Sodium/Sodium Chloride 25,000 unit in 250 mls @ 0 mls/hr 11/03/20 21:30 11/04/20 08:56 IVCONT 10 units/kg/hr .Q0M KEO 7.8 mls/hr Titration Protocol Per Protocol Lactated Ringer's 1,000 mls @ 100 mls/hr 11/04/20 03:22 11/04/20 14:00 Lr IVCONT 100 mls/hr .Q10H KEO Administration Losartan Potassium 100 mg 11/04/20 09:00 11/04/20 08:41 Losartan Potassium 50 Mg Tablet PO 100 mg DAILY KEO Administration Protocol Ondansetron HCl 4 mg 11/04/20 03:22 Ondansetron Hcl 4 Mg/2 Ml Vial IVPUSH Q8H PRN Nausea and Vomiting Oxycodone HCl 5 mg 11/04/20 03:22 11/04/20 03:50 Oxycodone Hcl Immed Release 5 Mg Tablet PO 5 mg Q6H PRN Administration Pain, Severe (Pain Scale 7-10) Sodium Chloride 3 ml 11/04/20 08:00 11/04/20 08:30 0.9 % Sodium Chloride Flush 3 Ml Syringe IVFLUSH Not Given QSHIFT [facility] Home Medications Medication Instructions Recorded Confirmed Last Taken Type amlodipine 5 mg tablet 1 tab PO DAILY 11/03/20 11/03/20 Unknown History atorvastatin 40 mg tablet 1 tab PO DAILY 11/03/20 11/03/20 Unknown History clopidogrel 75 mg tablet 1 tab PO DAILY 11/03/20 11/03/20 Unknown History diclofenac sodium 1 % topical gel 2 g TOPICAL TID 11/03/20 11/03/20 Unknown H istory hydrochlorothiazide 12.5 mg capsule 1 cap PO DAILY 11/03/20 11/03/20 Unknown History losartan 100 mg tablet 1 tab PO DAILY 11/03/20 11/03/20 Unknown History Physical Exam Vital Signs: Vital Signs: Last Vital Signs Temp 97.7 F 11/04/20 11:27 Pulse 107 H 11/04/20 11:27 Resp 18 11/04/20 11:27 BP 153/93 H 11/04/20 11:27 Pulse Ox 96 11/04/20 11:27 Body Mass Index 26.9 Const: General: cooperative, healthy appearing and comfortable Orientation/consciousness: oriented to person, oriented to place and oriented to time HENMT: Head: Yes normal to inspection Neck: Neck: Yes normal visual inspection Carotids: no bruits Chest: Chest palpation & inspection: normal inspection of the chest Resp: Effort & Inspection: normal respiratory effort and able to speak in complete sentences Auscultation: clear to auscultation bilaterally, no crackles, no rales, no rhonchi and no wheezes Cardio: Rate: regular rate Rhythm: regular rhythm Heart sounds: S1 normal heart sound present and S2 normal heart sound present Bruits: no carotid bruits Peripheral pulses: dorsalis pedis present on the right (Palpable right side DP) and on the left (Left side DP signal only) GI: Inspection: Yes normal to inspection Skin: Wounds: no wounds Hair: normal Neuro: General: oriented to person, oriented to place and oriented to time Cranial nerves: Yes CN's II-XII intact bilaterally and Yes Normal hearing present Cognition (Neuro): normal cognition Motor exam (neuro): 5/5 motor strength present throughout Extrem: Other: venous exam: No significant superficial varicosities or spider telangiectasias, minimal edema General: No clubbing, No cyanosis and No edema Psych: Appearance: grossly normal Mental Status: mental status grossly normal Speech and movement: Normal speech and movement present Results Labs Result diagrams: 11/04/20 04:22 11/04/20 04:22 Labs: Abnormal lab results 11/03/20 11/03/20 11/04/20 Range/Units 16:50 16:51 04:22 PTT (Heparin Protocol) (53-77.9) SEC Carbon Dioxide 21 L (22-29) mmol/L BUN 18 H (9-16) mg/dL Creatinine 1.60 H (0.5-1.4) mg/dL Random Glucose 117 H (60-115) mg/dL Total Bilirubin 1.7 H (0.0-1.0) mg/dL B-Natriuretic Peptide 244 H (<100) pg/mL Total Protein 8.1 H (6.5-8.0) g/dL 11/04/20 11/04/20 11/04/20 Range/Units 04:22 06:47 08:12 PTT (Heparin Protocol) > 200.0 H* 96.3 H D 51.1 L D (53-77.9) SEC Carbon Dioxide (22-29) mmol/L BUN (9-16) mg/dL Creatinine (0.5-1.4) mg/dL Random Glucose (60-115) mg/dL Total Bilirubin (0.0-1.0) mg/dL B-Natriuretic Peptide (<100) pg/mL Total Protein (6.5-8.0) g/dL Short CBC 11/03/20 11/04/20 Range/Units 16:50 04:22 WBC 7.4 8.2 (4.8-10.8) X10*3/uL Hgb 14.9 15.6 (14.0-18.0) g/dl Hct 44.1 46.0 (42-52) % Plt Count 192 176 (160-400) X10*3/uL BMP 11/03/20 11/04/20 16:50 04:22 Sodium 140 140 Potassium 4.1 3.9 Chloride 104 106 Carbon Dioxide 25 21 L BUN 18 H 16 Creatinine 1.60 H 1.33 Calcium 9.7 9.7 Liver Function 11/03/20 Range/Units 16:50 Total Bilirubin 1.7 H (0.0-1.0) mg/dL AST 15 (5-37) U/L ALT 14 (0-40) U/L Alkaline Phosphatase 49 (39-117) U/L Albumin 4.8 (3.5-5.0) g/dL All other labs normal. Assessment and Plan (1) Thrombosis of artery of left lower extremity: Status: Acute In short patient appears to have a stable thromboembolic event. Fortunately it is below-knee vessels. Motor and sensation has been intact. Would continue with heparin drip. Cardiology evaluation. Pending his overall status may plan for endovascular intervention. Thank you for allowing us to assist in his care. If there are any questions or concerns please do not hesitate to contact us. Please note a total of 50 minutes was required for the evaluation and treatment of this patient including record assessment, management of services, imaging review, coordination of care and anticoagulation. Procedures Date of Service Date of Service: 11/04/20
[2020-11-04 18:30] LABS: PTT Heparin Drip 72.5 SEC (53-77.9)
[2020-11-04] MEDS: Heparin Sodium,Porcine/1/2NS 25,000 UNIT/250 ML IV.SOLN 6.24 UNIT IVCONT (23:46)
[2020-11-04] MEDS: 0.9 % Sodium Chloride Flush 3 ML SYRINGE IVFLUSH (23:53)
[2020-11-05] VITALS (10 sets, daily range): BP systolic 105–156; BP diastolic 58–89; PULSE 65–108; RESP 12–25; TEMP 36.2–36.8; O2SAT 96–100
[2020-11-05 03:32] LABS: Hemoglobin 14.4 g/dl (14.0-18.0); Mean Corpuscular HGB Conc 34.3 g/dl (31.0-36.0); Mean Corpuscular Hemoglobin 31.8 pg (27.0-33.0); Mean Corpuscular Volume 92.7 fL (80-98); Mean Platelet Volume 10.2 fL (9.4-12.4); Platelet Count 162 X10*3/uL (160-400); Red Blood Count 4.53 X10*6/uL (4.60-5.80); Red Cell Distribution Width 13.3 % (11.0-16.0); White Blood Count 7.3 X10*3/uL (4.8-10.8)
[2020-11-05 03:44] LABS: PTT Heparin Drip 72.3 SEC (53-77.9)
[2020-11-05 04:29] LABS: Anion Gap 12 (12-20); Blood Urea Nitrogen 19 mg/dL (9-16); Calcium 8.9 mg/dL (8.4-10.2); Carbon Dioxide 27 mmol/L (22-29); Chloride 104 mmol/L (96-108); Creatinine Clr Calc Pharmacy 46.2; Estimated Glomerular Filt Rate 56; Glucose Random 100 mg/dL (60-115); Potassium 3.6 mmol/L (3.3-5.1); Sodium 139 mmol/L (135-145)
--- NOTE | 2020-11-05 04:53 | PC.NURSE ---
CARE ASSUMED 23:15...ALERT..ORIENTED X3..SPEECH CLEAR..CANCINO...RESPIRATIONS EASY ON ROOM AIR...HEPARIN DRIP 8 UNITS/KG/HR...O3:30 PPT-HD THERAPEUTIC..FOR REPEAT DRAW 09:30....RIGHT FOOT WARM WITH (+) PEDAL PULSES///LEFT FOOT WARM BUT COOLER THAN RIGHT...(+) LEFT POSTERIOR TIBIAL PULSE VIA DOPPLER..UNABLE TO AUSCULTATE LEFT DORSALIS PULSE...DENIES PAIN...PULSES UNCHANGED PER SHIFT REPORT...VOIDING YELLOW URINE IN URINAL STANDING AT BEDSIDE STEADY GAIT..OOB TO BEDSIDE COMMODE...NO BM...STATED NO BM X2 DAYS...RESTFUL OVERNIGHT..NAPPING W/O DIFFICULTY...ATRIAL FIB CONTROLLED HR
[2020-11-05] MEDS: hydroCHLOROthiazide 12.5 MG TABLET PO (08:09)
[2020-11-05] MEDS: amLODIPine Besylate 5 MG TABLET PO (08:09)
[2020-11-05] MEDS: Losartan Potassium 50 MG TABLET 100 MG PO (08:10)
[2020-11-05] MEDS: Atorvastatin Calcium 40 MG TABLET PO (08:10)
[2020-11-05] MEDS: Clopidogrel Bisulfate 75 MG TABLET PO (09:13)
--- NOTE | 2020-11-05 09:47 | MHC.CLN ---
NUTRITION/DIET DIET CHANGED TO CARDIAC DUE TO DX HTN AND AFIB.
[2020-11-05] MEDS: Lactated Ringers 1,000 ML 100 ML IVCONT (09:48)
--- NOTE | 2020-11-05 09:54 | P.PNVS_ITS ---
Subjective Subjective Date of Service: 11/05/20 Patient reports: no new complaints, feels better and pain is less Interval history: 75-year-old gentleman with an atheroembolic event to the left lower extremity is doing significantly better this morning. Pain is improved. He is able to ambulate with no significant difficulty. He has been maintained on a heparin drip. He now presents for routine vascular follow-up evaluation. Patient was seen with the hospitalist team and case was discussed with the son via tablet. Physical Exam Vital Signs: Vital Signs: Last Vital Signs Temp 98.2 F 11/05/20 07:12 Pulse 108 H 11/05/20 08:10 Resp 12 11/05/20 07:12 BP 156/88 H 11/05/20 08:10 Pulse Ox 96 11/05/20 07:12 Body Mass Index 26.9 Const: General: cooperative, healthy appearing and no acute distress Orientation/consciousness: oriented to person, oriented to place and oriented to time HENMT: Head: Yes normal to inspection Neck: Carotids: no bruits Chest: Chest palpation & inspection: normal inspection of the chest Resp: Effort & Inspection: normal respiratory effort and able to speak in complete sentences Auscultation: clear to auscultation bilaterally Cardio: Rate: regular rate Heart sounds: S1 normal heart sound present and S2 normal heart sound present Peripheral pulses: dorsalis pedis present on the left (DP signal biphasic left) GI: Inspection: Yes normal to inspection Skin: General skin exam: no rashes or lesions noted Wounds: no wounds Neuro: General: oriented to person, oriented to place, oriented to time and CN's II-XI intact bilaterally Extrem: General: Yes normal to inspection, Yes full ROM and Yes no clubbing, cyanosis or edema Psych: Appearance: grossly normal and well kempt Speech and movement: Normal speech and movement present Affect: normal affect Progress Note: A&P Assessment and plan (1) Thrombosis of artery of left lower extremity: Status: Acute Assessment and Plan: Left leg is doing well. It appears to be a small distal thromboembolic event that might be resolving with anticoagulation. Would recommend conversion to a direct oral anticoagulant. Ambulate as tolerated. Pending cardiology follow- up. Stable from my perspective for discharge within the next day. Thank you for allowing us to assist in his care. If there are any questions or concerns please do not hesitate to contact us. Fall Risk Details Current Medications: Current Medications Generic Name Dose Route Start Last Admin Trade Name Gianrfancoq PRN Reason Stop Dose Admin Acetaminophen 650 mg 11/04/20 03:22 Acetaminophen 325 Mg Tablet PO Q6H PRN Pain, Mild (Pain Scale 1-3) Amlodipine Besylate 5 mg 11/04/20 09:00 11/05/20 08:09 Amlodipine Besylate 5 Mg Tablet PO 5 mg DAILY KEO Administration Protocol Atorvastatin Calcium 40 mg 11/04/20 09:00 11/05/20 08:10 Atorvastatin Calcium 40 Mg Tablet PO 40 mg DAILY KEO Administration Clopidogrel Bisulfate 75 mg 11/04/20 09:00 11/05/20 09:13 Clopidogrel Bisulfate 75 Mg Tablet PO 75 mg DAILY KEO Administration Docusate Sodium 100 mg 11/04/20 03:22 Docusate Sodium 100 Mg Capsule PO DAILY PRN Constipation Heparin Sodium (Porcine) 3,100 unit 11/03/20 21:29 Heparin Sodium,Porcine 5,000 Unit/Ml Vial 40 unit/kg (3100 unit) IVPUSH PROTOCOL BOLUS PRN 40 unit/kg - Heparin Protocol Protocol Heparin Sodium (Porcine) 6,200 unit 11/03/20 21:31 Heparin Sodium,Porcine 5,000 Unit/Ml Vial 80 unit/kg (6200 unit) IVPUSH PROTOCOL BOLUS PRN 80 unit/kg - Heparin Protocol Protocol Hydrochlorothiazide 12.5 mg 11/04/20 09:00 11/05/20 08:09 Hydrochlorothiazide 12.5 Mg Tablet PO 12.5 mg DAILY KEO Administration Protocol Heparin Sodium/Sodium Chloride 25,000 unit in 250 mls @ 0 mls/hr 11/03/20 21:30 11/04/20 23:46 IVCONT 8 units/kg/hr .Q0M KEO 6.24 mls/hr Administration Protocol Per Protocol Lactated Ringer's 1,000 mls @ 100 mls/hr 11/04/20 03:22 11/05/20 09:48 Lr IVCONT 100 mls/hr .Q10H KEO Administration Losartan Potassium 100 mg 11/04/20 09:00 11/05/20 08:10 Losartan Potassium 50 Mg Tablet PO 100 mg DAILY KEO Administration Protocol Ondansetron HCl 4 mg 11/04/20 03:22 Ondansetron Hcl 4 Mg/2 Ml Vial IVPUSH Q8H PRN Nausea and Vomiting Oxycodone HCl 5 mg 11/04/20 03:22 11/04/20 03:50 Oxycodone Hcl Immed Release 5 Mg Tablet PO 5 mg Q6H PRN Administration Pain, Severe (Pain Scale 7-10) Sodium Chloride 3 ml 11/04/20 08:00 11/05/20 09:03 0.9 % Sodium Chloride Flush 3 Ml Syringe IVFLUSH Not Given QSHIFT KEO Time Spent With Patient Time: Total time spent is greater than 50% in coordination of care (as documented) at patient's floor/unit and/or counseling patient: Time with patient: 15 - 24 minutes Procedures Date of Service Date of Service: 11/05/20 Quality Stroke Does the patient have a stroke diagnosis?: No VTE Prior VTE?: No VTE Risk Level:: Medical - moderate - high VTE Device Contraindication: Treatment Not Indicated VTE Drug Contraindication: N/A - Med Ordered
[2020-11-05] MEDS: Apixaban 5 MG TABLET PO ×2 (10:30→21:13)
--- NOTE | 2020-11-05 13:33 | P.PNIM_ITS ---
Subjective Subjective Date of Service: 11/05/20 Interval History: the patient was seen and evaluated this morning His son was on the phone so I had a chance to speak with him and to help with interpretation Laying in bed, feels comfortable with left lower extremity getting warmer with less pain Denies any fever, chills or shortness of breath No reported other overnight events. Systemic review: No fever, chills or weakness No chest pain, palpitation No shortness of breath or coughing No abdominal pain, nausea or vomiting No urinary symptoms No any rash or wounds, pain improving in the left lower extremity Physical Exam Vital Signs: Vital Signs: Last Vital Signs Temp 98.1 F 11/05/20 11:14 Pulse 89 11/05/20 11:14 Resp 17 11/05/20 11:14 BP 127/75 11/05/20 11:14 Pulse Ox 96 11/05/20 11:14 Body Mass Index 26.9 Const: Other: Constitutional : Alert, oriented, not in distress Neck : Normal inspection, Supple Cardiovascular : RRR, S1 S2, no lower extremity edema Respiratory : Good bilateral air entry, no crackles, wheezes or rhonchi Gastrointestinal: soft, lax, Normal bowel sounds, Non tender Skin : Warm, Dry Vascular left lower extremity warmer with a fair sensation and posterior tibial weak pulsation felt Neurological : Alert & oriented x3, No focal deficit Objective Data Current Medications Generic Name Dose Route Start Last Admin Trade Name Freq PRN Reason Stop Dose Admin Acetaminophen 650 mg 11/04/20 03:22 Acetaminophen 325 Mg Tablet PO Q6H PRN Pain, Mild (Pain Scale 1-3) Amlodipine Besylate 5 mg 11/04/20 09:00 11/05/20 08:09 Amlodipine Besylate 5 Mg Tablet PO 5 mg DAILY KEO Administration Protocol Apixaban 5 mg 11/05/20 10:30 11/05/20 10:30 Apixaban 5 Mg Tablet PO 11/11/20 21:01 5 mg BID KEO Administration Atorvastatin Calcium 40 mg 11/04/20 09:00 11/05/20 08:10 Atorvastatin Calcium 40 Mg Tablet PO 40 mg DAILY KEO Administration Clopidogrel Bisulfate 75 mg 11/04/20 09:00 11/05/20 09:13 Clopidogrel Bisulfate 75 Mg Tablet PO 75 mg DAILY KEO Administration Docusate Sodium 100 mg 11/04/20 03:22 Docusate Sodium 100 Mg Capsule PO DAILY PRN Constipation Hydrochlorothiazide 12.5 mg 11/04/20 09:00 11/05/20 08:09 Hydrochlorothiazide 12.5 Mg Tablet PO 12.5 mg DAILY [facility] Administration Protocol Losartan Potassium 100 mg 11/04/20 09:00 11/05/20 08:10 Losartan Potassium 50 Mg Tablet PO 100 mg DAILY [facility] Administration Protocol Ondansetron HCl 4 mg 11/04/20 03:22 Ondansetron Hcl 4 Mg/2 Ml Vial IVPUSH Q8H PRN Nausea and Vomiting Oxycodone HCl 5 mg 11/04/20 03:22 11/04/20 03:50 Oxycodone Hcl Immed Release 5 Mg Tablet PO 5 mg Q6H PRN Administration Pain, Severe (Pain Scale 7-10) Sodium Chloride 3 ml 11/04/20 08:00 11/05/20 09:03 0.9 % Sodium Chloride Flush 3 Ml Syringe IVFLUSH Not Given QSHIFT [facility] Labs CBC & Chem 7: 11/05/20 03:24 11/05/20 03:24 Labs: Laboratory Results - last 24 hr 11/04/20 11/04/20 11/04/20 14:24 17:45 21:01 MCV MCH MCHC RDW Plt Count MPV Absolute Nucleated RBC Nucleated RBC % (auto) PTT (Heparin Protocol) 67.2 D 72.5 80.0 H Anion Gap Estim Creat Clear Calc Estimated GFR Random Glucose Calcium 11/05/20 11/05/20 11/05/20 03:24 03:24 03:24 MCV 92.7 MCH 31.8 MCHC 34.3 RDW 13.3 Plt Count 162 MPV 10.2 Absolute Nucleated RBC 0.000 Nucleated RBC % (auto) 0.0 PTT (Heparin Protocol) 72.3 Anion Gap 12 Estim Creat Clear Calc 46.2 Estimated GFR 56 Random Glucose 100 Calcium 8.9 D Assessment and Plan (1) Atrial fibrillation: Status: Acute (2) Thrombosis of artery of left lower extremity: Status: Acute Assessment and Plan: 75-year-old male who presents to the hospital with left leg pain found to have thrombus of the artery of left lower ext and a new onset AFib # thrombosis of artery of left lower extreme likely secondary to new onset AFib with embolic occlusion Discontinue heparin GGT Start full-dose Eliquis Vascular surgery input appreciated, no intervention needed at this point can be discharged on anticoagulation # new onset AFib Rate controlled Not on rate control at this point, to use metoprolol if needed Echo within normal Cardiology input appreciated, avoid amiodarone Started on Eliquis # hypertension continue amlodipine and losartan # history of CVA continue Plavix DVT prophylaxis: Heparin GGT Quality Stroke Does the patient have a stroke diagnosis?: No VTE Prior VTE?: No VTE Risk Level:: Medical - moderate - high VTE Device Contraindication: Treatment Not Indicated VTE Drug Contraindication: N/A - Med Ordered
--- NOTE | 2020-11-05 14:27 | P.PNCA_ITS ---
Subjective Subjective Date of Service: 11/05/20 Interval history: Rate controlled atrial fibrillation Physical Exam Vital Signs: Last Vital Signs Temp 98.1 F 11/05/20 11:14 Pulse 89 11/05/20 11:14 Resp 17 11/05/20 11:14 BP 127/75 11/05/20 11:14 Pulse Ox 96 11/05/20 11:14 Body Mass Index 26.9 GENERAL APPEARANCE: in no acute distress, pleasant. NECK: no carotid bruit, no jugular venous distention. SKIN: no suspicious lesions, warm and dry. HEART: no murmurs, irregular rate and rhythm. LUNGS: clear to auscultation bilaterally. ABDOMEN: soft, nontender. NEUROLOGIC: No gross deficits, AAO X 3 Results Labs and Meds Result diagrams: 11/05/20 03:24 11/05/20 03:24 Lab results: Laboratory Results - last 24 hr 11/04/20 11/04/20 11/04/20 14:24 17:45 21:01 WBC RBC Hgb Hct MCV MCH MCHC RDW Plt Count MPV Absolute Nucleated RBC Nucleated RBC % (auto) PTT (Heparin Protocol) 67.2 D 72.5 80.0 H Sodium Potassium Chloride Carbon Dioxide Anion Gap BUN Creatinine Estim Creat Clear Calc Estimated GFR Random Glucose Calcium 11/05/20 11/05/20 11/05/20 03:24 03:24 03:24 WBC 7.3 RBC 4.53 L Hgb 14.4 Hct 42.0 MCV 92.7 MCH 31.8 MCHC 34.3 RDW 13.3 Plt Count 162 MPV 10.2 Absolute Nucleated RBC 0.000 Nucleated RBC % (auto) 0.0 PTT (Heparin Protocol) 72.3 Sodium 139 Potassium 3.6 Chloride 104 Carbon Dioxide 27 Anion Gap 12 BUN 19 H Creatinine 1.25 Estim Creat Clear Calc 46.2 Estimated GFR 56 Random Glucose 100 Calcium 8.9 D Progress Note: A&P Assessment and plan (1) Atrial fibrillation: Status: Acute (2) Thrombosis of artery of left lower extremity: Status: Acute Assessment and Plan: 75-year-old gentleman with atrial fibrillation and embolic 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 Clinically improving. He was on anticoagulation with heparin drip before and has been changed to Eliquis. Vascular surgery on board. No heart failure. Rates are well controlled. He will need long-term anticoagulation. If heart rates uncontrolled then we will consider adding some beta willi. Thank you for allowing me to participate in the care of your patient. Please feel free to contact me if you have any questions. Fall Risk Details Current Medications: Current Medications Generic Name Dose Route Start Last Admin Trade Name Freq PRN Reason Stop Dose Admin Acetaminophen 650 mg 11/04/20 03:22 Acetaminophen 325 Mg Tablet PO Q6H PRN Pain, Mild (Pain Scale 1-3) Amlodipine Besylate 5 mg 11/04/20 09:00 11/05/20 08:09 Amlodipine Besylate 5 Mg Tablet PO 5 mg DAILY KEO Administration Protocol Apixaban 5 mg 11/05/20 10:30 11/05/20 10:30 Apixaban 5 Mg Tablet PO 11/11/20 21:01 5 mg BID KEO Administration Atorvastatin Calcium 40 mg 11/04/20 09:00 11/05/20 08:10 Atorvastatin Calcium 40 Mg Tablet PO 40 mg DAILY KEO Administration Clopidogrel Bisulfate 75 mg 11/04/20 09:00 11/05/20 09:13 Clopidogrel Bisulfate 75 Mg Tablet PO 75 mg DAILY KEO Administration Docusate Sodium 100 mg 11/04/20 03:22 Docusate Sodium 100 Mg Capsule PO DAILY PRN Constipation Hydrochlorothiazide 12.5 mg 11/04/20 09:00 11/05/20 08:09 Hydrochlorothiazide 12.5 Mg Tablet PO 12.5 mg DAILY KEO Administration Protocol Losartan Potassium 100 mg 11/04/20 09:00 11/05/20 08:10 Losartan Potassium 50 Mg Tablet PO 100 mg DAILY KEO Administration Protocol Ondansetron HCl 4 mg 11/04/20 03:22 Ondansetron Hcl 4 Mg/2 Ml Vial IVPUSH Q8H PRN Nausea and Vomiting Oxycodone HCl 5 mg 11/04/20 03:22 11/04/20 03:50 Oxycodone Hcl Immed Release 5 Mg Tablet PO 5 mg Q6H PRN Administration Pain, Severe (Pain Scale 7-10) Sodium Chloride 3 ml 11/04/20 08:00 11/05/20 09:03 0.9 % Sodium Chloride Flush 3 Ml Syringe IVFLUSH Not Given QSHIFT COUNTS INCLUDE 234 BEDS AT THE [facility] Time Spent With Patient Time: Total time spent is greater than 50% in coordination of care (as documented) at patient's floor/unit and/or counseling patient: Time with patient: 15 - 24 minutes Progress Note: Quality Stroke Does the patient have a stroke diagnosis?: No Procedures Date of Service Date of Service: 11/05/20
[2020-11-05] MEDS: 0.9 % Sodium Chloride Flush 3 ML SYRINGE IVFLUSH (15:53)
[2020-11-05] MEDS: Docusate Sodium 100 MG CAPSULE PO (17:17)
--- NOTE | 2020-11-05 17:21 | PC.NURSE ---
[facility] [place] in ICU as overflow. HEparin drip infusing early this AM, converted to PO Eliquis after Dr.s Mcdermott and Bri conversed and ddecided to continue medical treatment for DVT to LLE. Patient able to stand at bedside, march in place without presence of any pain to LLE. Doppler pulse present to posterior tibial region. Foot remains cool, but per MD is warmer than on 11/04. VSS today. Spoke to son via CYBRA, updated by both Dr.s Juarez and Bri. C/O constipation this evening, not wanting to eat his dinner. 100mg PO colace given.
[2020-11-06 03:56] VITALS: BP 131/71; PULSE 71; RESP 14; TEMP 36.6; O2SAT 97
--- NOTE | 2020-11-06 04:38 | PC.NURSE ---
Pt alert and oriented. Denies pain. Left foot is warm to touch, no pain. Pulses heard with dopplar and are weak and transient. Pt stands on side of bed to void. No pain with this activity. Monitor shows afib, rate 70-80's. vital signs stable.
[2020-11-06 05:26] LABS: Hematocrit 42.2 % (42-52); Hemoglobin 14.4 g/dl (14.0-18.0); Mean Corpuscular HGB Conc 34.1 g/dl (31.0-36.0); Mean Corpuscular Hemoglobin 31.7 pg (27.0-33.0); Mean Platelet Volume 10.4 fL (9.4-12.4); Platelet Count 160 X10*3/uL (160-400); Red Blood Count 4.54 X10*6/uL (4.60-5.80); Red Cell Distribution Width 13.4 % (11.0-16.0); White Blood Count 6.8 X10*3/uL (4.8-10.8)
[2020-11-06 05:53] LABS: Anion Gap 15 (12-20); Blood Urea Nitrogen 21 mg/dL (9-16); Carbon Dioxide 24 mmol/L (22-29); Chloride 104 mmol/L (96-108); Creatinine Clr Calc Pharmacy 43.8; Estimated Glomerular Filt Rate 53; Glucose Random 100 mg/dL (60-115); Potassium 3.8 mmol/L (3.3-5.1); Sodium 139 mmol/L (135-145)
[2020-11-06 07:32] VITALS: BP 144/74; PULSE 97; RESP 19; TEMP 36.6; O2SAT 97
[2020-11-06 08:15] VITALS: BP 144/74; PULSE 97
[2020-11-06] MEDS: amLODIPine Besylate 5 MG TABLET PO (08:15)
[2020-11-06] MEDS: Losartan Potassium 50 MG TABLET 100 MG PO (08:15)
[2020-11-06] MEDS: Apixaban 5 MG TABLET PO (08:15)
[2020-11-06] MEDS: 0.9 % Sodium Chloride Flush 3 ML SYRINGE IVFLUSH ×2 (08:16)
[2020-11-06] MEDS: Atorvastatin Calcium 40 MG TABLET PO (08:16)
[2020-11-06] MEDS: Clopidogrel Bisulfate 75 MG TABLET PO (08:16)
[2020-11-06] MEDS: hydroCHLOROthiazide 12.5 MG TABLET PO (08:16)
--- NOTE | 2020-11-06 11:18 | PM.DS ---
DS: Providers Provider Date of Service: 11/06/20 Date of admission: 11/04/20 00:18 Primary care physician: Gus Prieto MD Consults: 11/04/20 03:22 Consult to Vascular Surgery Routine Consulting Provider: Ras Gregory Reason for consultation: arterial clot Has provider been notified: Yes 11/04/20 05:31 Consult to Cardiology Routine Consulting Provider: Adria Hightower Reason for consultation: new onset a fib Has provider been notified: No DS: Diagnosis Discharge Diagnosis (1) Atrial fibrillation: Status: Acute (2) Thrombosis of artery of left lower extremity: Status: Acute DS: Medications Discharge Medications Home Medications: Home Medications Medication Instructions Recorded Confirmed amlodipine 5 mg tablet 1 tab PO DAILY 11/03/20 11/03/20 atorvastatin 40 mg tablet 1 tab PO DAILY 11/03/20 11/03/20 clopidogrel 75 mg tablet 1 tab PO DAILY 11/03/20 11/03/20 diclofenac sodium 1 % topical gel 2 g TOPICAL TID 11/03/20 11/03/20 hydrochlorothiazide 12.5 mg capsule 1 cap PO DAILY 11/03/20 11/03/20 losartan 100 mg tablet 1 tab PO DAILY 11/03/20 11/03/20 Previous Rx's Medication Instructions Recorded apixaban 5 mg tablet (Eliquis) 5 mg PO BID 30 Days #60 tab 11/06/20 metoprolol succinate 25 mg capsule 25 mg PO DAILY #30 ea 11/06/20 geovannile, ext. release 24 hr DS: Summary Hospital Course Hospital Course: Admission note HPI This is a 75-year-old male with past medical history of hypertension, and CVA who presents to the hospital with complaints of left leg pain.? Patient is [place] speaking and help is obtained by speaking to his son and grab son over the phone.? According to them who live with the patient, patient started complaining of left leg pain the day prior to presentation, the pain was stabbing sharp 8/10, radiating down his lower leg, associated with no alleviating or exacerbating factors, patient denies any headache, change in vision, palpitations, chest pain, no abdominal pain nausea or vomiting, no diarrhea constipation, no urinary symptoms. Vital signs were significant for temp of 98?, heart rate of 113, respiratory rate of 16, blood pressure of 148/77, satting 99% on room air Labs reviewed found to be unremarkable except for an elevated total bili of 1.7 as well as BNP of 244, COVID-19 negative Arterial duplex of the lower extremity showed acute thrombus in the tibioperoneal trunk and the for annual with monophasic flow Venous duplex negative for DVT Vascular surgery was consulted, patient started on heparin drip and will be admit Hospital course Patient was admitted for evaluation of left lower extremity pain and numbness with goal sensation. Arterial ultrasound showed acute thrombus. Started on IV heparin drip as vascular surgery were contacted. Evaluated by Dr. Gregory who recommended no intervention as heparin drip seems to be helping as the day became warmer with decreased pain in the patient was able to ambulate on it. IV heparin discontinued the next day and patient started on full-dose Eliquis and continue to have fair pulses in the posterior tibial on the left lower extremity. Noticed to have new onset atrial fibrillation. Started on Eliquis for stroke reduction. Heart rate started going up so he was started on metoprolol. Evaluated by Cardiology as an echo showed within normal cardiac function. To be discharged on metoprolol and Eliquis and to follow up with Cardiology as outpatient. Time Spent with Patient Time attestation: Total time spent providing and/or coordinating discharge services: Discharge coordination time: Greater than 30 minutes Quality: Stroke Does the patient have a stroke diagnosis?: No Physical Exam Vital Signs: Vital Signs: Last Vital Signs Temp 97.8 F 11/06/20 07:32 Pulse 97 11/06/20 08:15 Resp 19 11/06/20 07:32 BP 144/74 H 11/06/20 08:15 Pulse Ox 97 11/06/20 07:32 Body Mass Index 26.9 Const: Other: Constitutional : Alert, oriented, not in distress Neck : Normal inspection, Supple Cardiovascular : RRR, S1 S2, no lower extremity edema Respiratory : Good bilateral air entry, no crackles, wheezes or rhonchi Gastrointestinal: soft, lax, Normal bowel sounds, Non tender Skin : Warm, Dry Vascular: left lower extremity warmer with fair sensation and posterior tibial pulsation felt Neurological : Alert & oriented x3, No focal deficit DS: Data Data Completed and Pending Labs on day of discharge: Laboratory Results - last 24 hr 11/06/20 11/06/20 05:06 05:06 WBC 6.8 RBC 4.54 L Hgb 14.4 Hct 42.2 MCV 93.0 MCH 31.7 MCHC 34.1 RDW 13.4 Plt Count 160 MPV 10.4 Absolute Nucleated RBC 0.000 Nucleated RBC % (auto) 0.0 Sodium 139 Potassium 3.8 Chloride 104 Carbon Dioxide 24 Anion Gap 15 BUN 21 H Creatinine 1.32 Estim Creat Clear Calc 43.8 Estimated GFR 53 Random Glucose [address] scan - abdomen: Radiologist's impression: ITS Impressions Duplex Scan Lower Extremity Artery 11/03/20 16:33 IMPRESSION: Acute thrombus is present in the tibioperoneal trunk and the peroneal is essentially with monophasic flow noted in the distal reconstituted posterior tibial artery. Anterior tibial artery was not visualized. Venous Duplex 11/03/20 16:33 IMPRESSION: No DVT demonstrated in the left lower extremity. Discharge Plan Discharge Patient Disposition: Home, Self-Care Discharge Diagnosis: Left lower extremity artery clot New onset atrial fibrillation Referrals: Gus Hua MD [Primary Care Provider] - 1 Week Discharge Medications: New Eliquis 5 mg Tablet 5 mg PO BID 30 Days Qty: 60 RF: 2 metoprolol succinate 25 mg capsule,sprinkle,ER 24hr 25 mg PO DAILY Qty: 30 RF: 0 Continued atorvastatin 40 mg tablet 1 tab PO DAILY RF: 0 clopidogrel 75 mg tablet 1 tab PO DAILY RF: 0 amlodipine 5 mg tablet 1 tab PO DAILY RF: 0 hydrochlorothiazide 12.5 mg capsule 1 cap PO DAILY RF: 0 losartan 100 mg tablet 1 tab PO DAILY RF: 0 diclofenac sodium 1 % gel 2 g topical TID RF: 0 Discharge Orders: Discharge Order (Routine); Ordered 11/06/20 Ordered By: Andres Mcdermott Diet: advance to usual diet Activity on Discharge: As tolerated Stand Alone Forms: Patient Portal Discharge page Care Plan Goals: Read below Health Concerns: Read below Plan of Treatment: You were admitted to the hospital for evaluation of cold left lower extremity. Found to a clot in the artery. Treated with IV blood thinners with good response as the clot was dissolved and your leg became warmer with significant decrease in the level of pain. Evaluated by vascular surgeon who recommended no intervention at this point. Noticed to have irregular heart rhythm called atrial fibrillation. Evaluated by concrete pile driver operator and started on metoprolol for rate control. Assessment: Continue home medications as prescribed Start Eliquis as prescribed Start metoprolol 25 mg daily Get medical advice for any bleeding or black stools To follow-up with Dr. Gregory in the office after calling for an appointment to follow with Cardiology as outpatient as scheduled
[2020-11-06 12:01] VITALS: BP 107/61; PULSE 109
[2020-11-06] MEDS: Metoprolol Succinate ER 12.5 MG HALFTAB.ER.24H PO (12:01)
--- NOTE | 2020-11-06 14:24 | P.PNVS_ITS ---
Subjective Subjective Date of Service: 11/06/20 Patient reports: no new complaints, feels better and pain is less Interval history: Patient seen and examined. Had no significant events overnight. Feel significantly better. He is ambulating without any difficulty. Anxious to go home. Physical Exam Vital Signs: Vital Signs: Last Vital Signs Temp 97.8 F 11/06/20 07:32 Pulse 109 H 11/06/20 12:01 Resp 19 11/06/20 07:32 BP 107/61 11/06/20 12:01 Pulse Ox 97 11/06/20 07:32 Body Mass Index 26.9 Const: General: cooperative, healthy appearing and no acute distress Orientation/consciousness: oriented to person, oriented to place and oriented to time HENMT: Head: Yes normal to inspection Neck: Carotids: no bruits Chest: Chest palpation & inspection: normal inspection of the chest Resp: Effort & Inspection: normal respiratory effort and able to speak in complete sentences Auscultation: clear to auscultation bilaterally Cardio: Rate: regular rate Heart sounds: S1 normal heart sound present and S2 normal heart sound present Peripheral pulses: dorsalis pedis present (Left DP signal) GI: Inspection: Yes normal to inspection Skin: General skin exam: no rashes or lesions noted Wounds: no wounds Neuro: General: oriented to person, oriented to place, oriented to time and CN's II-XI intact bilaterally Extrem: General: Yes normal to inspection, Yes full ROM and Yes no clubbing, cyanosis or edema Psych: Appearance: grossly normal and well kempt Speech and movement: Normal speech and movement present Affect: normal affect Progress Note: A&P Assessment and plan (1) Thrombosis of artery of left lower extremity: Status: Acute Assessment and Plan: In short patient had a thromboembolic event. Stable from my perspective for discharge. Motor and sensation was intact throughout his entire hospitalization. It appears to have significantly improved with anticoagulatio n. He will be discharged on formal direct oral anticoagulant. He can follow up with me as an outpatient. I left my business card with him. We did have a discussion regarding this with the son yesterday. Thank you for allowing us to participate in his care. If there are any questions or concerns please do not hesitate to contact us. Time Spent With Patient Time: Total time spent is greater than 50% in coordination of care (as documented) at patient's floor/unit and/or counseling patient: Time with patient: 15 - 24 minutes Procedures Date of Service Date of Service: 11/06/20 Quality Stroke Does the patient have a stroke diagnosis?: No VTE Prior VTE?: No VTE Risk Level:: Medical - moderate - high VTE Device Contraindication: Treatment Not Indicated VTE Drug Contraindication: N/A - Med Ordered
== END 2020-11-06 13:30 | disposition home or self-care (01) | DRG 197 ==
LOC: HO.ED 23:21 → HO.EDOVER 11-04 01:20 → HO.ICU 11-04 10:09
PROVIDERS: Physician Assistant; Admitting Provider Internal Medicine; Emergency Provider Internal Medicine; PCP Internal Medicine; Visit Provider Student in an Organized Health Care Education/Training Program
DX: I82.452 Acute embolism and thrombosis of left peroneal vein (principal); I48.91 Unspecified atrial fibrillation; Z20.822 Contact with and (suspected) exposure to COVID-19; Z86.73 Personal history of transient ischemic attack (TIA), and cerebral infarction without residual deficits; Z79.01 Long term (current) use of anticoagulants; Z79.02 Long term (current) use of antithrombotics/antiplatelets; Z79.899 Other long term (current) drug therapy
CPT/HCPCS: 36415; 80048; 80053; 83880; 84484; 85025; 85027; 85379; 85610; 85730; 87635; 93005; 93306; 93926; 93971; 97163; 99285

== ENCOUNTER → 2021-08-17 09:10 | Outpatient (BNVA) | payer MEDICAID, SELFPAY | PROVIDERS: PCP Internal Medicine; Referring Provider Family Medicine; Visit Provider Internal Medicine Cardiovascular Disease | DX: I48.91 Unspecified atrial fibrillation (principal); Z79.01 Long term (current) use of anticoagulants | CPT/HCPCS: 93005; 99212 ==

== ENCOUNTER → 2021-10-02 11:14 | Outpatient (BNVA) | payer MEDICAID, SELFPAY | PROVIDERS: PCP Internal Medicine | DX: R35.1 Nocturia (principal); R35.0 Frequency of micturition | CPT/HCPCS: 51798; 99202 ==

== ENCOUNTER 2022-10-11 15:44 | Outpatient (AMB) | payer MEDICAID, SELFPAY ==
[2022-10-11 15:49] VITALS: BP 166/98; PULSE 80; BMI 28.7
--- NOTE | 2022-10-11 15:49 | MHC.OFFVIS ---
Intake Vital Signs 10/11/22 15:49 Height 5 ft 7 in Weight 182 lb 15.739 oz BMI 28.7 BP 166/98 H Blood Pressure Location Lt brachial Position Sitting Pulse 80 Intake Visit Reasons: FOLLOW UP REQUESTED BY PT, KM PT. Intake Note: follow up request by pt Medical Assistant Float Required: Yes Medical Assistant Float Name: natalie saab [id number] Allergies No Known Allergies Allergy (Verified 10/11/22 15:58) Medication List - Last Reconciled 10/11/22 by Magali Grayson, ANGEL-C amlodipine 2.5 mg PO DAILY apixaban (Eliquis) 5 mg PO BID 30 days atorvastatin 40 mg PO DAILY clopidogrel 75 mg PO DAILY diclofenac sodium 1% 2 grams topical TID hydrochlorothiazide 12.5 mg PO DAILY losartan 100 mg PO DAILY metoprolol succinate ER 75 mg (3 x 25 mg) PO BID 60 days HPI FOLLOW UP REQUESTED BY PT, KM PT. HPI Details Waqas is a 77-year-old male with past medical medical history of hypertension, CVA, atrial fibrillation who presents for follow-up. His last prior visit to our office was 08/17/2021. Today he reports he has been feeling rapid heart palpitations at times. It is difficult to get a full description even with the use of a [place]ian american sign language interpreter. No clear chest discomfort, shortness of breath, dizziness, presyncope, syncope, falls, PND, orthopnea or edema. He reports taking all his meds as directed. Son is present. Certified american sign language interpreter was used. [facility] Medical History (Updated 10/11/22 @ 16:41 by RINKU Quiñonez) Atrial fibrillation CVA (cerebral vascular accident) Hypertension Urinary frequency Surgical History History of cataract surgery History of surgery on arm Family History Mother HTN (hypertension) Father HTN (hypertension) Social History Alcohol intake: former Patient Tobacco Use Status: Never used Tobacco service: No Current occupational status: retired Review of Systems Const All systems reviewed & are unremarkable except as noted in HPI and below ENT Reports dizziness Card Denies chest pain, Denies chest pain at rest, Denies chest pain with activity, Denies rapid heart rate, Denies pedal edema, Denies edema, Denies leg edema, Denies lightheadedness, Reports palpitations, Denies dyspnea, Denies dyspnea on exertion and Denies orthopnea Resp Denies cough, Denies dyspnea and Denies dyspnea on exertion GI Denies hematochezia and Denies change in stool character Musc Denies abnormal gait, Reports limited range of motion, Reports muscle cramps, Denies muscle weakness, Denies numbness, Denies radiating pain into limb, Denies stiffness and Denies tingling Neuro Denies abnormal gait, Reports dizziness, Denies numbness and Denies tingling Endo Reports palpitations Physical Exam Vital Signs: Last Vital Signs BP 166/98 H 10/11/22 15:49 BMI result Body Mass Index 28.7 Const General: cooperative, healthy appearing, comfortable and no acute distress Neck Neck: Yes normal visual inspection Resp Effort & Inspection: normal respiratory effort Auscultation: clear to auscultation bilaterally, no crackles, no rales, no rhonchi and no wheezes Cardio Jugular venous distension: no JVD Rate: regular rate Rhythm: regular rhythm Heart sounds: S1 normal heart sound present, S2 normal heart sound present, no murmurs and no rubs GI Inspection: Yes normal to inspection Extrem General: Yes normal to inspection, No no pedal edema and No calf tenderness Psych Appearance: grossly normal Mental Status: mental status grossly normal Speech and movement: Normal speech and movement present Office Procedures EKG Details: Today, read, atrial fibrillation, right axis deviation, rate 80, QTC 438 millisecond [id number], Complete Assessment & Plan Assessment & Plan (1) Atrial fibrillation: Code(s): I48.91 - Unspecified atrial fibrillation Plan: History of chronic atrial fibrillation. Has been on metoprolol for heart rate control. EKG done today showing AFib, right axis, no significant change from prior EKG, rate 80. He does signal and report rapid palpitations especially with activity. It is possible he is having elevated AFib rates or other arrhythmia. Will check a Holter monitor for further evaluation. Last echocardiogram done 11/04/2020 showing EF 65-70%, normal RV. No need to repeat at this time. He is on Eliquis for anticoagulation. No bleeding issues reported. Labs are followed by his PCP. Will try to obtain. (2) Palpitation: Code(s): R00.2 - Palpitations (3) Hypertension: Code(s): I10 - Essential (primary) hypertension Plan: History of hypertension. Blood pressure is elevated today at 166/98 initially, recheck done by me 160/98. He continues on losartan 100 mg daily, metoprolol XL 25 mg b.i.d. hydrochlorothiazide 12.5 mg daily. His amlodipine is 2.5 mg daily with notes indicating that he had leg edema on higher dose. At this time will increase his hydrochlorothiazide up to 25 mg daily. Will plan for BMP in 1-2 weeks. Cardiology follow-up in 2-3 months for for re-evaluation of blood pressure and condition. Orders: Orders ECG 3 day holter monitor 10/11/22 I48.91 - Unspecified atrial fibrillation, R00.2 - Palpitations Comprehensive Met. Panel 2 Weeks I10 - Essential (primary) hypertension Medications: New hydrochlorothiazide 25 mg PO DAILY 30 tabs 4RF Coding Level of Care Code Est Pt Level 4 (06113) Diagnoses Atrial fibrillation I48.91 Palpitation R00.2 Hypertension I10 CPT Codes EKG - CPT: [id number], Complete ([id number]) Time Spent (min) 30 Comment Chart review, documentation, interview, assessment
== END 2022-10-11 16:15 ==
PROVIDERS: PCP Internal Medicine; Visit Provider Nurse Practitioner Family
DX: R00.1 Bradycardia, unspecified (principal)
CPT/HCPCS: 93010; 99214

== ENCOUNTER → 2022-10-11 15:44 | Outpatient (BNVA) | payer MEDICAID, SELFPAY | PROVIDERS: PCP Internal Medicine; Visit Provider Nurse Practitioner Family | DX: I48.91 Unspecified atrial fibrillation (principal); I10 Essential (primary) hypertension; R00.2 Palpitations | CPT/HCPCS: 93005; 99214 ==

== ENCOUNTER → 2022-10-22 12:17 | Outpatient (REF) | payer MEDICAID, SELFPAY ==
--- NOTE | 2022-10-22 12:20 | HM_ITS ---
Conclusion: 1. Patient was monitored for total period of 1 day and 23 hours 2. Baseline was atrial fibrillation with average heart of 62 beats per minute 3. Pauses noted up to 3.7 seconds during sleep hours, which are not significant for patient's in persistent atrial fibrillation 4. Rare PVCs noted 5. No patient reported events MTDD
== END ==
LOC: HO.CARD 12:17
PROVIDERS: PCP Internal Medicine; Visit Provider Nurse Practitioner Family
DX: R00.2 Palpitations (principal); I48.91 Unspecified atrial fibrillation
CPT/HCPCS: 93225

== ENCOUNTER → 2022-10-22 12:20 | Outpatient (BNV) | payer MEDICAID, SELFPAY | PROVIDERS: PCP Internal Medicine; Visit Provider Internal Medicine Cardiovascular Disease | DX: I48.91 Unspecified atrial fibrillation (principal) | CPT/HCPCS: 93227 ==

== ENCOUNTER 2023-04-29 11:07 | Outpatient (REF) | payer MEDICAID, SELFPAY ==
[2023-04-29 13:57] LABS: Alanine Aminotransferase 23 U/L (0-40); Albumin Level 4.3 g/dL (3.5-5.0); Alkaline Phosphatase 48 U/L (39-117); Anion Gap 13 (12-20); Aspartate Amino Transferase 17 U/L (5-37); Bilirubin Total 0.9 mg/dL (0.0-1.0); Blood Urea Nitrogen 21 mg/dL (9-16); Calcium 9.4 mg/dL (8.4-10.2); Carbon Dioxide 24 mmol/L (22-29); Chloride 100 mmol/L (96-108); Cholesterol 118 mg/dL (<200); Estimated Glomerular Filt Rate 53; Glucose Random 100 mg/dL (60-115); HDL Cholesterol 44 mg/dL (>40); LDL Cholesterol Calculated 50 mg/dL (<100); Potassium 3.7 mmol/L (3.3-5.1); Sodium 133 mmol/L (135-145); Total Protein 7.5 g/dL (6.5-8.0); Triglycerides 124 mg/dL (<150)
== END 2023-04-29 11:08 | disposition home or self-care (01) ==
LOC: HO.CHCLDS 11:07
PROVIDERS: Visit Provider Internal Medicine
DX: E78.2 Mixed hyperlipidemia (principal)
CPT/HCPCS: 36415; 80053; 80061

== ENCOUNTER 2023-08-17 15:25 | Outpatient (REF) | payer MEDICAID, SELFPAY ==
--- NOTE | ~2023-08-17 | XR_ITS ---
EXAMINATION: XR LUMBOSACRAL SPINE CLINICAL INFORMATION: Chronic bilateral low back pain without sciatica. COMPARISON: None available. TECHNIQUE: Three views of the lumbosacral spine. FINDINGS: Atherosclerotic aorta calcifications. The bones are diffusely demineralized. Facet arthritis in the lower lumbar spine. Slight rightward curvature of the lumbar spine. Degenerative changes in the bilateral sacroiliac joints. Moderate multilevel lumbar spondylosis with multilevel loss of disc space height. Grade 1 anterolisthesis of L5 on S1. XR/XR lumbar spine 2-3V IMPRESSION: Moderate multilevel lumbar spondylosis.
== END 2023-08-17 15:26 | disposition home or self-care (01) ==
LOC: HO.HHCX 15:25
PROVIDERS: Visit Provider Internal Medicine
DX: M54.50 Low back pain, unspecified (principal); G89.29 Other chronic pain
CPT/HCPCS: 72100

== ENCOUNTER 2024-01-16 09:48 | Outpatient (REF) | payer MEDICAID, SELFPAY ==
[2024-01-16 14:45] LABS: MANUAL DIFF FLAG NO
[2024-01-16 14:51] LABS: Basophils Absolute Auto 0.1 X10*3/uL (0.0-0.2); Basophils Percent Auto 1.1 % (0-2); Eosinophils Absolute Auto 0.4 X10*3/uL (0.0-0.4); Eosinophils Percent Auto 6.4 % (0-4); Hematocrit 43.6 % (42.0-52.0); Hemoglobin 14.9 g/dl (14.0-18.0); Imm Gran Abs Auto 0.02 X10*3/uL (0.00-0.03); Imm Gran Pct Auto 0.4 % (0.0-0.4); Lymphocytes Absolute Auto 2.1 X10*3/uL (1.2-4.9); Mean Corpuscular HGB Conc 34.2 g/dl (31.0-36.0); Mean Corpuscular Hemoglobin 32.7 pg (27.0-33.0); Mean Corpuscular Volume 95.6 fL (80.0-98.0); Mean Platelet Volume 10.5 fL (9.4-12.4); Monocytes Absolute Auto 0.5 X10*3/uL (0.1-1.2); Monocytes Percent Auto 8.7 % (2-11); Neutrophils Absolute Auto 2.6 x10*3/uL (2.0-8.3); Neutrophils Percent Auto 45.4 % (45-73); Platelet Count 185 X10*3/uL (160-400); Red Blood Count 4.56 X10*6/uL (4.60-5.80); Red Cell Distribution Width 13.2 % (11.0-16.0); White Blood Count 5.6 X10*3/uL (4.8-10.8)
[2024-01-16 16:13] LABS: Alanine Aminotransferase 26 U/L (0-40); Albumin Level 4.3 g/dL (3.5-5.0); Alkaline Phosphatase 53 U/L (39-117); Anion Gap 14 (12-20); Aspartate Amino Transferase 28 U/L (5-37); Bilirubin Total 1.1 mg/dL (0.0-1.0); Blood Urea Nitrogen 24 mg/dL (9-16); Calcium 9.9 mg/dL (8.4-10.2); Carbon Dioxide 24 mmol/L (22-29); Chloride 101 mmol/L (96-108); Cholesterol 126 mg/dL (<200); Estimated Glomerular Filt Rate 41; Glucose Random 107 mg/dL (60-115); HDL Cholesterol 45 mg/dL (>40); LDL Cholesterol Calculated 65 mg/dL (<100); Sodium 135 mmol/L (135-145); Total Protein 7.7 g/dL (6.5-8.0); Triglycerides 81 mg/dL (<150)
[2024-01-16 16:33] LABS: TSH reflex Free T4 2.17 uIU/mL (0.32-4.0)
== END 2024-01-16 09:49 | disposition home or self-care (01) ==
LOC: HO.CHCLDS 09:48
PROVIDERS: Visit Provider Internal Medicine
DX: I10 Essential (primary) hypertension (principal)
CPT/HCPCS: 36415; 80053; 80061; 84443; 85025

== ENCOUNTER 2024-02-18 09:33 | Emergency (ER) | payer MEDICAID, SELFPAY ==
--- NOTE | ~2024-02-18 | CT_ITS ---
EXAMINATION: CT HEAD WITHOUT CONTRAST CLINICAL INFORMATION: Intermittent dizziness, rule out stroke COMPARISON: None available. TECHNIQUE: Contiguous axial imaging was performed from the skull base to vertex without intravenous administration of contrast. This CT examination was performed using dose optimization techniques as appropriate, variously including the following: *Automated exposure control *Adjustment of mA and/or kV according to patient size (this includes techniques or standardized protocols for targeted exams where dose is matched to indication/reason for exam; i.e. extremities or head) *Use of iterative reconstruction technique DLP: 128 mGy-cm RESULTS: There is no evidence of acute intracranial hemorrhage, acute large vessel infarct, midline shift or mass effect. The alvarez-white differentiation is preserved. 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 There are patchy periventricular and subcortical white matter changes, which are nonspecific, but likely represent chronic microangiopathic change in a patient of this age. The ventricles and sulci are within normal limits in size and configuration. There is no evidence of hydrocephalus. There are no extraaxial collections. Osseous structures are intact. Paranasal sinuses and mastoid air cells are well aerated. Multiple small soft tissue lesion/sebaceous cysts. CT/CT head/brain wo IV con IMPRESSION: 1. No acute intracranial pathology. 2. 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 Electronically signed by: Jolie Swenson MD 02/18/2024 02:40 PM EST
[2024-02-18 09:40] VITALS: BP 113/36; PULSE 90; RESP 18; TEMP 36.6; O2SAT 99; BMI 27.6
[2024-02-18 10:17] LABS: MANUAL DIFF FLAG NO
[2024-02-18 10:22] LABS: Basophils Percent Auto 0.7 % (0-2); Eosinophils Absolute Auto 0.2 X10*3/uL (0.0-0.4); Eosinophils Percent Auto 3.7 % (0-4); Hematocrit 43.6 % (42.0-52.0); Hemoglobin 14.8 g/dl (14.0-18.0); Imm Gran Abs Auto 0.02 X10*3/uL (0.00-0.03); Imm Gran Pct Auto 0.4 % (0.0-0.4); Lymphocytes Absolute Auto 1.4 X10*3/uL (1.2-4.9); Lymphocytes Percent Auto 25.4 % (20-40); Mean Corpuscular HGB Conc 33.9 g/dl (31.0-36.0); Mean Corpuscular Hemoglobin 32.4 pg (27.0-33.0); Mean Corpuscular Volume 95.4 fL (80.0-98.0); Mean Platelet Volume 9.9 fL (9.4-12.4); Monocytes Absolute Auto 0.4 X10*3/uL (0.1-1.2); Neutrophils Absolute Auto 3.4 x10*3/uL (2.0-8.3); Neutrophils Percent Auto 62.8 % (45-73); Platelet Count 179 X10*3/uL (160-400); Red Blood Count 4.57 X10*6/uL (4.60-5.80); Red Cell Distribution Width 13.2 % (11.0-16.0); White Blood Count 5.4 X10*3/uL (4.8-10.8)
[2024-02-18 10:32] LABS: Anion Gap 18 (12-20); Blood Urea Nitrogen 27 mg/dL (9-16); Calcium 9.6 mg/dL (8.4-10.2); Carbon Dioxide 22 mmol/L (22-29); Chloride 99 mmol/L (96-108); Creatinine Clr Calc Pharmacy 35.9; Estimated Glomerular Filt Rate 40; Glucose Random 143 mg/dL (60-115); Potassium 4.2 mmol/L (3.3-5.1); Sodium 135 mmol/L (135-145)
[2024-02-18 12:24] VITALS: BP 130/84; PULSE 77; RESP 17; TEMP 36.7; O2SAT 97
--- NOTE | 2024-02-18 13:09 | ED.DIZZY ---
HPI - Dizziness General Chief Complaint: Dizziness Stated Complaint: dizzy Time Seen by Provider: 02/18/24 13:08 Source: patient and family (GrandRaji powell ) Mode of arrival: ambulatory Limitations: language barrier (Patient's speaks [place] Citizen and Tagalog, son speaks [place] Citizen and Tagalog) History of Present Illness ED Provider: Dr. Josue Alvarado HPI Narrative: 78-year-old male with a history of hypertension, palpitations, atrial fibrillation, chronic kidney disease who presents emergency department for evaluation of intermittent dizziness x5 days. The patient states that the symptoms came on suddenly. He describes them as a room spinning sensation which is worse with position change. He states that he will have periods a no dizziness did a last 20-30 minutes but if he changes position he gets dizzy again. The patient also states he feels off balance. He denied headache, vision change, weakness. He states he does have shortness of breath and nausea associated with the dizziness. This is 1st episode of dizziness. Related Data Home Medications ?Medication ?Instructions ?Recorded ?Confirmed diclofenac sodium 1 % topical gel 2 g topical TID 11/03/20 10/11/22 amlodipine 2.5 mg tablet 2.5 mg PO DAILY 08/17/21 10/11/22 atorvastatin 40 mg tablet 40 mg PO DAILY 08/17/21 10/11/22 clopidogrel 75 mg tablet 75 mg PO DAILY 08/17/21 10/11/22 losartan 100 mg tablet 100 mg PO DAILY 08/17/21 10/11/22 Previous Rx's ?Medication ?Instructions ?Recorded apixaban 5 mg tablet (Eliquis) 5 mg PO BID 30 days #60 tabs 11/06/20 metoprolol succinate 25 mg 75 mg (3 x 25 mg) PO BID 60 days 08/17/21 tablet,extended release 24 hr #360 tabs hydrochlorothiazide 25 mg tablet 25 mg PO DAILY #30 tabs 10/11/22 meclizine 12.5 mg tablet 12.5 mg PO TID PRN dizziness #20 02/18/24 tabs Allergies Allergy/AdvReac Type Severity Reaction Status Date / Time No Known Allergies Allergy Verified 02/18/24 09:41 Review of Systems Review of Systems: Yes all other systems are reviewed and are negative [facility] Past Medical History [facility] Narrative: Social history: He denies tobacco use. He occasionally drinks alcohol. Medical History (Updated 12/07/24 @ 14:50 by Josue Alvarado MD) Urinary frequency CVA (cerebral vascular accident) Atrial fibrillation Hypertension Surgical History History of surgery on arm History of cataract surgery Family History Family History Mother HTN (hypertension) Father HTN (hypertension) Social History Social History Alcohol intake: former Patient Tobacco Use Status: Never used Tobacco Advance Directives: No Advance Directives Information Provided: No Do you have a plan to hurt others: No Plan service: No Current occupational status: retired Physical Exam Vital Signs: Vital Signs: Last Vital Signs Temp 97.6 F 02/18/24 14:05 Pulse 80 02/18/24 14:05 Resp 12 02/18/24 14:05 BP 126/77 02/18/24 14:05 Pulse Ox 98 02/18/24 14:05 O2 Del Method Room Air 02/18/24 14:05 BMI result Body Mass Index 27.6 Vital signs were normal. Exam: General: Awake, alert in no distress Head: Normocephalic, atraumatic EENT: PERRL, Lids normal, sclera normal, conjunctiva normal, nose normal , ears normal, throat without erythema or exudates Neck: Supple, no adenopathy Lung: breath sounds symmetric, no wheezing, rales or rhonchi Chest: symmetric movement, nontender Heart: regular rate and rhythm, normal S1, S2 no murmurs or rubs Abdomen: soft, non-tender, nondistended, normal bowel sounds Back: no vertebral tenderness, no CVAT Extremities: no deformities, moves all extremities symmetrically Neuro: General: Awake, alert, answers questions appropriately, normal speech pattern Cranial nerves: Cranial nerves 2-12 are intact Strength: Symmetric strength bilaterally, 5/5 Cerebellar: Patient does have lateral nystagmus with position change. Good kscfth-xr-rawp-to-finger, good rapid finger movement, good heel to cruz Psych: Pleasant, cooperative Medications Administered Discontinued Medications Generic Name Dose Route Start Last Admin Trade Name Freq PRN Reason Stop Dose Admin Meclizine HCl 12.5 mg 02/18/24 13:29 02/18/24 14:26 Meclizine Hcl 12.5 Mg Tablet PO 02/18/24 13:30 12.5 mg ONCE ONE Administration Medical Decision Making Medical Decision Making [facility] Narrative: 78-year-old male with a history of hypertension, palpitations, atrial fibrillation, chronic kidney disease who presents emergency department for evaluation of intermittent dizziness x5 days. The dizziness has been intermittent he has periods where it resolves completely and come back when he changes position. He had no other concerning symptoms such as headache, vision change, weakness. Vital signs were normal. Physical examination did reveal lateral nystagmus with position change and vertigo with position change. Cerebellar exam was otherwise normal. Differential diagnosis: ?Includes but is not limited to positional vertigo, cerebellar stroke, electrolyte abnormalities, anemia Course: 13:37 My interpretation patient's laboratory evaluation as follows: CBC was normal. CMP revealed an elevated BUN and creatinine of 27 and 1.66-consistent with his chronic kidney disease. Impression is the patient has benign positional vertigo however given his age I did order a CT scan to rule out stroke, bleed, mass effect. Patient was treated with meclizine 12.5 mg orally. 14:[address] scan of the patient's brain did not reveal any acute abnormalities which is reassuring. I did discuss positional vertigo with the patient and the patient's grandson and the patient will be discharged home. Patient was prescribed meclizine 12.5 mg 3 times a day as needed for dizziness. There were given printed and verbal instructions at the time of discharge. Admission/Observation Consideration of admission/observation: Escalation of care including admission/observation considered (Yes) Lab Data [facility] Lab Attestation statement: I reviewed the patient's lab results. 02/18/24 10:13 02/18/24 10:13 Labs: Lab Results 02/18/24 Range/Units 10:13 WBC 5.4 (4.8-10.8) X10*3/uL RBC 4.57 L (4.60-5.80) X10*6/uL Hgb 14.8 (14.0-18.0) g/dl Hct 43.6 (42.0-52.0) % MCV 95.4 (80.0-98.0) fL MCH 32.4 (27.0-33.0) pg MCHC 33.9 (31.0-36.0) g/dl RDW 13.2 (11.0-16.0) % Plt Count 179 (160-400) X10*3/uL MPV 9.9 (9.4-12.4) fL Immature Gran % (Auto) 0.4 (0.0-0.4) % Neut % (Auto) 62.8 (45-73) % Lymph % (Auto) 25.4 (20-40) % Josephine % (Auto) 7.0 (2-11) % Eos % (Auto) 3.7 (0-4) % Baso % (Auto) 0.7 (0-2) % Lymph # (Auto) 1.4 (1.2-4.9) X10*3/uL Josephine # (Auto) 0.4 (0.1-1.2) X10*3/uL Eos # (Auto) 0.2 (0.0-0.4) X10*3/uL Baso # (Auto) 0.0 (0.0-0.2) X10*3/uL Abs Immat Gran (auto) 0.02 (0.00-0.03) X10*3/uL Absolute Neuts (auto) 3.4 (2.0-8.3) x10*3/uL Absolute Nucleated RBC 0.000 (0.0-0.012) X10*3/uL Nucleated RBC % (auto) 0.0 (0.0-0.2) /100WBC Sodium 135 (135-145) mmol/L Potassium 4.2 (3.3-5.1) mmol/L Chloride 99 (96-108) mmol/L Carbon Dioxide 22 (22-29) mmol/L Anion Gap 18 (12-20) BUN 27 H (9-16) mg/dL Creatinine 1.66 H (0.5-1.4) mg/dL Estim Creat Clear Calc 35.9 Estimated GFR 40 Random Glucose 143 H (60-115) mg/dL Calcium 9.6 (8.4-10.2) mg/dL Radiology Impression Discussion of test interpretation with radiology: I have reviewed the radiologist's reading. Radiologist Impression: CT head/brain wo IV con IMPRESSION: 1. No acute intracranial pathology. 2. 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 Electronically signed by: Jolie Swenson MD 02/18/2024 02:40 PM [facility] [place] Dictated By: Jolie Swenson MD Independent Historian Clinical information obtained from an independent historian. History obtained from or confirmed by: Other (Grandson) Prescription Management I considered prescription management with: Other (Anti vertigo medication: Meclizine 12.5 mg 3 times a day as needed for dizziness) Chronic Conditions Patient?s care impacted by: Hypertension and Other (Atrial fibrillation) Discharge Plan Discharge Clinical Impression: Benign paroxysmal positional vertigo Qualifiers: Laterality: unspecified laterality Qualified Code(s): H81.10 - Benign paroxysmal vertigo, unspecified ear Patient Disposition: Home, Self-Care Instructions: Benign Paroxysmal Positional Vertigo (ED) Additional Instructions: Your blood work was unremarkable. The CT scan did not reveal any findings to explain your dizziness which is reassuring. Your dizziness is consistent with positional vertigo which is caused by the balance mechanism in your brain. These symptoms come on suddenly and can often last 1-2 weeks. Take meclizine 25 mg pills, 1 pill 3 times a day for the next 3 days for dizziness then as needed for dizziness. ?This medication will make you sleepy. ?Do not drive or work while taking this medication. Follow-up with your doctor in 2 days. Please return to the emergency department if your symptoms get worse or if you develop any symptoms that are concerning to you. Prescriptions: New meclizine 12.5 mg tablet 12.5 mg PO TID PRN (Reason: dizziness) Qty: 20 0RF No Action diclofenac sodium 1 % gel 2 g topical TID Eliquis 5 mg Tablet 5 mg PO BID 30 Days Qty: 60 2RF atorvastatin 40 mg tablet 40 mg PO DAILY clopidogrel 75 mg tablet 75 mg PO DAILY losartan 100 mg tablet 100 mg PO DAILY amlodipine 2.5 mg tablet 2.5 mg PO DAILY metoprolol succinate 25 mg tablet extended release 24 hr 75 mg PO BID 60 Days Qty: 360 3RF hydrochlorothiazide 25 mg tablet 25 mg PO DAILY Qty: 30 4RF Print Language: Other
[2024-02-18 14:05] VITALS: BP 126/77; PULSE 80; RESP 12; TEMP 36.4; O2SAT 98
[2024-02-18] MEDS: Meclizine HCl 12.5 MG TABLET PO (14:26)
[2024-02-18 15:22] VITALS: BP 126/77; PULSE 80; RESP 12; TEMP 36.4; O2SAT 98
== END 2024-02-18 15:23 | disposition home or self-care (01) ==
PROVIDERS: Emergency Provider Emergency Medicine Emergency Medical Services; PCP Internal Medicine
DX: H81.10 Benign paroxysmal vertigo, unspecified ear (principal); I10 Essential (primary) hypertension; I48.91 Unspecified atrial fibrillation; Z86.73 Personal history of transient ischemic attack (TIA), and cerebral infarction without residual deficits; Z79.01 Long term (current) use of anticoagulants; Z79.899 Other long term (current) drug therapy
CPT/HCPCS: 36415; 70450; 80048; 85025; 99283; 99284

== ENCOUNTER 2025-02-13 16:06 | Emergency (ER) | payer MEDICAID, SELFPAY ==
--- NOTE | ~2025-02-13 | US_ITS ---
EXAMINATION: US TRIPLEX LOWER EXTREMITY, BILATERAL CLINICAL INFORMATION: Bilateral lower extremity swelling COMPARISON: None available. TECHNIQUE: Color-flow triplex imaging with spectral analysis and compression Doppler were performed on the bilateral lower extremities. FINDINGS: Respiratory variation, normal compression and augmented flow are noted throughout the bilateral lower extremities. The visualized common femoral vein, superficial femoral vein, profunda femoral vein, popliteal vein and midcalf peroneal and posterior tibial venous segments show no evidence of deep venous thrombosis bilaterally. US/US venous duplex LE BI IMPRESSION: No evidence of deep venous thrombosis involving the bilateral lower extremities. Electronically signed by: Fidencio Pineda MD 02/13/2025 05:11 PM [facility]
--- NOTE | ~2025-02-13 | XR_ITS ---
CLINICAL HISTORY: Chest pain 2 view chest x-ray Comparison: None provided Findings: No consolidation or pleural effusion. Normal size heart. No acute fracture. IMPRESSION: 1. No acute findings. This document has been electronically signed by: Yvette Burnham MD on 02/13/2025 18:03:27
--- OUTSIDE RECORDS SUMMARY | 2025-02-13 16:00 | XMS_ITS | Encounter Summary ---
Author Organization [employer] Address [address] 7 [place] [address] Care Team Providers Care Pan Pusher Name Role Phone Gus Hua MD Primary Care Prov ider Encounter Details Date Type Department Care Team (Late st Contact Info) Description 02/13/2025 4:00 PM EST Office Visit [facility] [address] [place] [id number] Chest pain, unspecified type (Primary Dx) Social History Tobacco Use Types Packs/Day Years Used Date Smoking Tobacco: Never Smokeless Tobacco: Never Alcohol Answer Date Recorded Frequency of Alcohol Consumption Not on file 01/06/2024 Average Number of Drinks Not on file 024 Frequency of Binge Drinking Not on file 12/13 Score 0 01/06/2024 Depression Answer Date Recorded Patient Health Questionnaire-9 Score 0 05/04/2024 Patient Health Questionnaire-9 Score 0 05/04/2024 Last PHQ-9: Questionnaire Data Not on file 0 05/04/2024 Housing Stability Answer Date Recorded What is your housing situation today? I have [place] 01/06/[address] you li ve. Do you have problems with any of the following? None of the above 01/06/2024 Food Insecurity Answer Date Recorded Within the past 12 months, y ou worried that your food would run out before you got money to buy more: Never True 01/06/2024 Within the past 12 months,th e food you bought just didn't last and you didn't have enough money to get more: Never True Transportation Answer Date Recorded In the past 12 months, has l ack of transportation kept you from medical appts, meetings, work or from getting things needed for daily living? No 01/06/2024 Utilities Answer Date Recorded In the past 12 months, has t he electric, gas, oil or water company threatened to shut off services in your home? No 01/06/2024 Depression Answer Date Recorded Patient Health Questionnaire-2 Score 0 05/04/2024 Internet Access Answer Date Recorded Internet Access Q1 Yes 01/06/2024 Internet Access Q2 Not on file 01/06/2024 Sex and Gender Information Value Date Recorded Sex Assigned at Male 01/11/2022 10:36 AM EDT Legal Sex Male 10:36 AM EDT Gender Identity Male 01/11/2022 10:36 AM EDT Sexual Orientation Straight 01/11/2022 10 :36 AM EDT documented as of this encounter Last Filed Vital Signs Vital Sign Reading Time Taken Comments Blood Pressure 182/112 02/13/2025 3:13 PM EST Pulse 85 02/13/2025 3:11 PM EST Temperature - - Respiratory Rate - - Oxygen Saturation 97% 02/13/2025 3:11 PM EST room air Inhaled Oxygen Concentration - - Weight - - Height - - Body Mass Index - - documented in this encounter Plan of Treatment Scheduled Orders Name Type Priority Associated Diagnoses Orde r Schedule ECG 12 lead ECG Routine Chest pain, unspecified type Ordered: 02/13/2025 documented as of this encounter Visit Diagnoses Diagnosis Chest pain, unspecified type- Primary documented in this encounter Additional Health Concerns Assessment Noted Time PHQ-9 Depression Total Score: 0 05/04/19 25 3:25 PM EST documented as of this encounter Care Teams Pan Pusher Relationship Specialty Start Date End Date Gus Hua MD [address] [place] [id number] PCP - General Internal Medicine 12/19/18 documented as of this encounter
--- NOTE | 2025-02-13 16:09 | ECG_ITS ---
Test Reason : CHEST PAIN Blood Pressure : */* mmHG Vent. Rate : 91 BPM Atrial Rate : * BPM P-R Int : * ms QRS Dur : 82 ms QT Int : 370 ms P-R-T Axes : * 61 31 degrees QTcB Int : 455 ms Atrial fibrillation Abnormal ECG When compared with ECG of 04-Nov-2020 12:54, No significant change was found Referred By: Alexandre Stephenson Electronically Signed By: IVORY VILLATORO
[2025-02-13 16:20] VITALS: BP 187/93; PULSE 91; RESP 20; TEMP 36.1; O2SAT 97; BMI 26.9
--- NOTE | 2025-02-13 16:27 | ED.CHESTPAIN ---
HPI - Chest Pain General Chief Complaint: Chest Pain Stated Complaint: CP Time Seen by Provider: 02/13/25 21:00 History of Present Illness ED Provider: Rufino ESCOBEDO narrative: The patient is an 79-year-old male with a history of atrial fibrillation who is on anticoagulation and metoprolol. He was taken by his grandson today to the [facility]. Apparently the patient has been complaining of chest pain intermittently for the last 3 days. The patient has also been complaining of some nocturnal shortness of breath. Also some worsening swelling of his lower legs. Also a slight cough. No fever. At the time that I interviewed the patient he had no ongoing discomfort. He was not feeling short of breath. Related Data Home Medications ?Medication ?Instructions ?Recorded ?Confirmed diclofenac sodium 1 % topical gel 2 g topical TID 11/03/20 10/11/22 amlodipine 2.5 mg tablet 2.5 mg PO DAILY 08/17/21 10/11/22 atorvastatin 40 mg tablet 40 mg PO DAILY 08/17/21 10/11/22 clopidogrel 75 mg tablet 75 mg PO DAILY 08/17/21 10/11/22 losartan 100 mg tablet 100 mg PO DAILY 08/17/21 10/11/22 Previous Rx's ?Medication ?Instructions ?Recorded apixaban 5 mg tablet (Eliquis) 5 mg PO BID 30 days #60 tabs 11/06/20 metoprolol succinate 25 mg 75 mg (3 x 25 mg) PO BID 60 days 08/17/21 tablet,extended release 24 hr #360 tabs hydrochlorothiazide 25 mg tablet 25 mg PO DAILY #30 tabs 10/11/22 meclizine 12.5 mg tablet 12.5 mg PO TID PRN dizziness #20 02/18/24 tabs furosemide 20 mg tablet (Lasix) 20 mg PO DAILY #30 tabs 02/13/25 Allergies Allergy/AdvReac Type Severity Reaction Status Date / Time No Known Allergies Allergy Verified 02/13/25 16:24 Review of Systems Review of Systems: Yes all other systems are reviewed and are negative [facility] Past Medical History Medical History (Updated 02/14/25 @ 00:00 by Shyla Long) Urinary frequency CVA (cerebral vascular accident) Atrial fibrillation Hypertension Surgical History History of surgery on arm History of cataract surgery Family History Family History Mother HTN (hypertension) Father HTN (hypertension) Social History Social History Alcohol intake: former Patient Tobacco Use Status: Never used Tobacco Smoked in Last 30 Days: No Use of substances other than those prescribed or required for medical reasons: No Advance Directives: No Advance Directives Information Provided: Yes Do you have a plan to hurt others: No Plan service: No Current occupational status: retired Physical Exam Vital Signs: Vital Signs: Last Vital Signs Temp 98 F 02/13/25 22:19 Pulse 82 02/13/25 22:19 Resp 20 02/13/25 22:19 BP 154/92 H 02/13/25 22:19 Pulse Ox 98 02/13/25 22:19 O2 Del Method Room Air 02/13/25 22:19 BMI result Body Mass Index 26.9 Const: Other: The patient is an 79-year-old man who was awake and alert. He seems pleasant and cooperative. He was smiling. He did not seem in pain or respiratory difficulty. HEENT: Other: The face is symmetrical. ?Mucous membranes moist. Eyes: Other: Pupils are round equal, conjunctivae are clear, extraocular movements intact Neck: Neck: Yes normal visual inspection, Yes full ROM and Yes no JVD Resp: Other: No wheezes or crackles Effort & Inspection: normal respiratory effort Auscultation: clear to auscultation bilaterally Cardio: Other: The patient has an irregular heart rhythm, rate is normal. No murmur heard. GI: Other: Abdomen is soft and nontender Skin: Other: The skin is dry and unremarkable Neuro: Other: The patient is awake and alert. Face is symmetrical, speech is clear, eye movements intact, he moves his extremities symmetrically and appropriately, no obvious focal deficit Extrem: Other: Mild pitting edema both lower legs Course Course Course Narrative: RME: 79-year-old male presents to ED for shortness of breath, chest pain, coughing and increased swelling of legs. Patient is sent from [facility] for evaluation Medical Decision Making Medical Decision Making [facility] Narrative: The patient is an 79-year-old male who primarily speaks Tagalog. He comes to the emergency room apparently having had 3 days of chest pain. His grandson brought him to the [facility] today because of this pain. At the [facility] he apparently has a fairly elevated blood pressure. I believe his diastolic was as high as 112. The patient's discomfort had apparently spontaneously resolved prior to my evaluation. He had no signs of discomfort or shortness of breath. His blood pressure came down to 154/92. He is in chronic atrial fibrillation. He is on anticoagulation. He is on rate control medication. He is currently rate controlled. Clinically the patient looked extremely well. He has a normal white count, hemoglobin, platelet count, and an unremarkable differential. His chemistries are unremarkable. He has some mild chronic renal insufficiency which is actually better than usual today. He has negative troponins. He has a pro BNP of 1585. There are no old values for comparison but I think this is probably a reflection of his chronic atrial fibrillation. On exam he has a mild peripheral edema with a negative DVT ultrasounds. Overall I think the patient looks well and may be discharged. Because of this peripheral edema I will prescribe furosemide 20 mg daily. He should follow up with his PCP's office soon for ongoing management. Return to the ER if worse. Lab Data 02/13/25 18:33 02/13/25 18:33 Labs: Lab Results 02/13/25 02/13/25 Range/Units 18:33 21:28 WBC 7.2 (4.8-10.8) X10*3/uL RBC 4.79 (4.60-5.80) X10*6/uL Hgb 15.7 (14.0-18.0) g/dl Hct 46.7 (42.0-52.0) % MCV 97.5 (80.0-98.0) fL MCH 32.8 (27.0-33.0) pg MCHC 33.6 (31.0-36.0) g/dl RDW 14.2 (11.0-16.0) % Plt Count 185 (160-400) X10*3/uL MPV 10.2 (9.4-12.4) fL Immature Gran % (Auto) 0.7 H (0.0-0.4) % Neut % (Auto) 56.4 (45-73) % Lymph % (Auto) 28.9 (20-40) % [place] % (Auto) 9.8 (2-11) % Eos % (Auto) 3.5 (0-4) % Baso % (Auto) 0.7 (0-2) % Lymph # (Auto) 2.1 (1.2-4.9) X10*3/uL [place] # (Auto) 0.7 (0.1-1.2) X10*3/uL Eos # (Auto) 0.3 (0.0-0.4) X10*3/uL Baso # (Auto) 0.1 (0.0-0.2) X10*3/uL Abs Immat Gran (auto) 0.05 H (0.00-0.03) X10*3/uL Absolute Neuts (auto) 4.1 (2.0-8.3) x10*3/uL Absolute Nucleated RBC 0.000 (0.0-0.012) X10*3/uL Nucleated RBC % (auto) 0.0 (0.0-0.2) /100WBC PT 14.7 H (11.2-13.5) SEC INR 1.2 H (0.9-1.1) APTT 29.2 (26.7-34.1) SEC Sodium 138 (135-145) mmol/L Potassium 4.8 (3.3-5.1) mmol/L Chloride 107 (96-108) mmol/L Carbon Dioxide 22 (22-29) mmol/L Anion Gap 14 (12-20) BUN 18 H (9-16) mg/dL Creatinine 1.20 (0.5-1.4) mg/dL Estim Creat Clear Calc 45.1 Estimated GFR 58 Random Glucose 107 (60-115) mg/dL Calcium 9.6 (8.4-10.2) mg/dL Total Bilirubin 1.1 H (0.0-1.0) mg/dL AST 25 (5-37) U/L ALT 29 (0-40) U/L Alkaline Phosphatase 62 (39-117) U/L Troponin I High Sens < 2.7 3.3 (<3.5-35.0) ng/L NT-Pro-B Natriuret Pep 1585.5 H (<300) pg/mL Total Protein 7.9 (6.5-8.0) g/dL Albumin 4.6 (3.5-5.0) g/dL Influenza Type A (PCR) NEGATIVE (Negative) Influenza Type B (PCR) NEGATIVE (Negative) RSV RNA Qual (PCR) NEGATIVE (Negative) SARS-CoV-2 RNA (RT-PCR) NEGATIVE (Negative) Independent Interpretation I performed an independent interpretation of an: EKG Interpretation: EKG at 16:13 shows atrial fibrillation at 91 beats per minute. No ischemic changes, no change from previous EKG. Discharge Plan Discharge Clinical Impression: Chest pain, Hypertension Patient Disposition: Home, Self-Care Additional Instructions: The testing today shows that there has been no heart attack. Other testing is also reassuring. I have sent a prescription for the medication furosemide which may be helpful with the swelling of your lower legs. I would recommend taking this medication in the morning. This will increase urination for several hours after taking the medication. Please follow up soon with your regular doctor and with the cardiology office to discuss your symptoms further. Return to the emergency room if significantly worse. Prescriptions: New furosemide [Lasix] 20 mg tablet 20 mg PO DAILY Qty: 30 0RF No Action diclofenac sodium 1 % gel 2 g topical TID Eliquis 5 mg Tablet 5 mg PO BID 30 Days Qty: 60 2RF atorvastatin 40 mg tablet 40 mg PO DAILY clopidogrel 75 mg tablet 75 mg PO DAILY losartan 100 mg tablet 100 mg PO DAILY meclizine 12.5 mg tablet 12.5 mg PO TID PRN (Reason: dizziness) Qty: 20 0RF amlodipine 2.5 mg tablet 2.5 mg PO DAILY metoprolol succinate 25 mg tablet extended release 24 hr 75 mg PO BID 60 Days Qty: 360 3RF hydrochlorothiazide 25 mg tablet 25 mg PO DAILY Qty: 30 4RF Referrals: [facility] [Provider Group] Gus Hua MD [Primary Care Provider, Medical] Interventions: ED Discharge Assessment Last Done: 02/13/25 22:19 Discharge Date/Time: 02/13/25 22:19 Print Language: Other
[2025-02-13 18:42] LABS: MANUAL DIFF FLAG NO
[2025-02-13 18:53] LABS: INTERNATIONAL NORM RATIO 1.2 (0.9-1.1); Prothrombin Time 14.7 SEC (11.2-13.5)
[2025-02-13 18:56] LABS: Partial Thromboplastin Time 29.2 SEC (26.7-34.1)
[2025-02-13 19:07] LABS: NT Pro B Type Natriuretic Pept 1585.5 pg/mL (<300)
--- OUTSIDE RECORDS SUMMARY | 2025-02-13 19:12 | XMS_ITS | Encounter Summary ---
Author Organization [employer] Address [address] [address] Care Team Providers Care Feed Adviser Name Role Phone Gus Hua MD Primary Care Prov ider Reason for Visit * Reason Onset Date Comments Med Refill 01/28/2025 Encounter Details Date Type Department Care Team (Late st Contact Info) Description 01/28/2025 Telephone [facility] [address] [place] [address] Gus Hua MD [address] [place] [address] Med Refill Social History Tobacco Use Types Packs/Day Years [...] your housing situation today? I have kvng perry 01/06/[address] you li [...] the past 12 months, has t he [employer], gas, oil or water company threatened to [...] AM EDT documented as of this encounter Miscellaneous Notes * Telephone Encounter - Kenia Claros LPN - 01/28/2025 8:54 AM EST Medication pended to PCP again today. * Telephone Encounter - Lexie Henao - 01/28/2025 8:46 AM EST Tc from [facility] requesting a med refill refiil on apixaban (Eliquis) 5 MG tablet. Pt [address] Polk documented in this encounter Plan of Treatment Not on file documented as of this encounter Visit Diagnoses Not on filedocumented in this encounter Additional Health Concerns Assessment Noted Time PHQ-9 Depression Total Score: 0 05/04/19 25 3:25 PM EST documented as of this encounter Care Teams Feed Adviser Relationship Specialty Start Date End Date Gus Hua MD [address] [place] [id number] PCP - General Internal Medicine 12/19/18 documented as of this encounter
--- OUTSIDE RECORDS SUMMARY | 2025-02-13 19:12 | XMS_ITS | Clinical Summary ---
Author Organization [employer] Address [address] 7 [place] [address] Care Team Providers Care Painter Ordnance Name Role Phone Gus Hua MD Primary Care Prov ider Allergies No known active allergies Medications polyethylene glycol, PEG, 3350 (Glycolax) 17 GM/SCOOP powder STIR 17GM INTO 8 OUNCES OF WATER, OR JUICE, AND DRINK DAILY NEEDED / DIRECTED IN THE MORNING 510 g 05/27/19 24 Active amLODIPine (Norvasc) 2.5 MG tablet TAKE ONE TABLET BY MOUTH EVERY DAY 90 tablet 3 01/06/20 24 Active acetaminophen (Arthritis Pain Relief) 650 MG ER tablet Take 1 tablet (650 mg) by mouth every 8 (eight) hours if needed for mild pain. Do not crush, chew, or split. 90 tablet 1 01/06/20 24 Active atorvastatin (Lipitor) 40 MG tablet TAKE ONE TABLET BY MOUTH EVERY DAY 90 tablet 3 01/06/20 24 Active hydrALAZINE (Apresoline) 50 MG tablet Take 1 tablet (50 mg) by mouth 2 times daily. 180 tablet 3 01/06/20 24 Active hydroCHLOROthi azide (HYDRODiuril) 25 MG tablet Take 1 tablet (25 mg) by mouth Once per day. 90 tablet 3 01/06/20 24 Active losartan (Cozaar) 100 MG tablet TAKE ONE TABLET BY MOUTH EVERY DAY 90 tablet 3 01/06/20 24 Active metoprolol succinate XL (Toprol-XL) 100 MG 24 hr tablet Take 1 tablet (100 mg) by mouth 2 times daily. 180 tablet 3 01/06/20 Active lidocaine-pril ocaine (Emla) 2.5-2.5 % creamIndicatio ns:Chronic bilateral low back pain without sciatica Apply topically 2 times daily. 300 g 1 10/11/19 Active clopidogrel (Plavix) 75 MG tablet TAKE ONE TABLET DAILY 90 tablet 1 01/17/20 Active apixaban (Eliquis) 5 MG tablet TAKE 1 TABLET BY MOUTH TWICE A DAY 180 tablet 1 5 3:12 PM EST 01/29/20 Active apixaban (Eliquis) 5 MG tablet Take 1 tablet (5 mg) by mouth 2 times daily. 180 tablet 3 01/06/20 24 025 Discontinued(Re order (will not trigger notification to Pharmacy)) clopidogrel (Plavix) 75 MG tablet TAKE ONE TABLET BY MOUTH EVERY DAY 90 tablet 1 05/25/19 25 025 Discontinued Active Problems Problem Noted Date Diagnosed Date Mixed hyperlipidemia 04/29/2023 Assessment & Plan (01/06/2024 12:28 PM EDT): New labs will be ordered for guidance of therapy Assessment & Plan (04/29/2023 1:27 PM EST): On statin therapy, will order new labs for guidance Chronic bilateral low back pain without sciatica 12/01/2022 Assessment & Plan (12/01/2022 11:38 AM EDT): Chronic , no neurologic deficit, will order a lumbar xray and will refer to PT Stage 3a chronic kidney disease ([facility]/HCC) 2022 Assessment & Plan (08/10/2022 11:35 AM EDT): Told to schedule follow up with nephrology, not seen in over a year, new labs will be ordered Atrial fibrillation ([facility]/HCC) 08/07/2021 Assessment & Plan (01/06/2024 12:27 PM EDT): On eliquis, he refers feeling more episodes of palpitationa, will increase metoprolol to 100mg bid, follow up with cardiology Assessment & Plan (08/10/2022 11:33 AM EDT): 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, told to reschedule appointment Cerebrovascular accident ([facility]) 08/07/2021 Hypertensive disorder 08/07/2021 Assessment & Plan (01/06/2024 12:28 PM EDT): Controlled, continue current treatment, decrease sodium in diet, keep bp log, follow p in 3 months Assessment & Plan (04/29/2023 1:27 PM EST): Controlled, reinforced low sodium diet and exercise as tolerated, keep bp log, target <140/90 Assessment & Plan (03/15/2023 3:51 PM EST): Uncontrolled, he was not taking hydrochlorothiazide, will renew medicaiton, he is on amlodipin 2.5 could not increased due to lower extremity edema, lsoartan 100mg, metoprolol 25mg and hydralazine 50mg BID, followed by cardiology, will follow up in 1 month for bp Assessment & Plan (12/01/2022 11:36 AM EDT): Controlled, will leave current treatment, reinforced low sodium diet and exercise as tolerated Assessment & Plan (10/27/2022 10:49 AM EDT): Not at target, will increase hydralazine to 50mg bid, will follow up in 1 month, blood work reviewed Assessment & Plan (08/10/2022 11:29 AM EDT): Patient returned from [facility] about 1 month ago, he has not been monitoring his bp, told to keep a log, bp target <140/90, reinforced low sodium diet and exercise as tolerated Arteriosclerosis of artery of extremity 12/06/19 21 Overview (08/10/2022): Last Assessment & Plan: 75M PMH afib, HTN, HLD, CVA with mild residual RLE deficits presents for evaluation of recent hospitalization for likely acute limb ischemia. Patient seen at OSH, and has duplex showing thrombus in TPT, with symptoms of acute onset rest pain of the left leg. He reports he was started on anticoagulation, currently on eliquis, and his symptoms have completely resolved. On physical exam he has palpable femorals, DPs, and PTs. He likely had embolic disease from his atrial fibrillation causing elise 1 ALI which has now resolved with anticoagulation. There is no surgical intervention that is needed. We recommend he continue anticoagulation. He should take an aspirin and statin as well for cardioprotection. He does not need to followup with us unless new symptoms arise. Thank you for allowing us to participate in the care of this pleasant patient, please do not hesitate to contact us with any additional questions or concerns. Last Assessment & Plan: 75M PMH afib, HTN, HLD, CVA with mild residual RLE deficits presents for evaluation of recent hospitalization for likely acute limb ischemia. Patient seen at OSH, and has duplex showing thrombus in TPT, with symptoms of acute onset rest pain of the left leg. He reports he was started on anticoagulation, currently on eliquis, and his symptoms have completely resolved. On physical exam he has palpable femorals, DPs, and PTs. He likely had embolic disease from his atrial fibrillation causing elise 1 ALI which has now resolved with anticoagulation. There is no surgical intervention that is needed. We recommend he continue anticoagulation. He should take an aspirin and statin as well for cardioprotection. He does not need to followup with us unless new symptoms arise. Thank you for allowing us to participate in the care of this pleasant patient, please do not hesitate to contact us with any additional questions or concerns. Encounters Date Type Department Care Team Description 02/13/2025 4:00 PM EST Office Visit [facility] [address] [place] [phone] Chest pain, unspecified type (Primary Dx) 02/13/2025 Orders Only [facility] External Provider, [facility] 02/13/2025 Telephone [facility] [address] [place] [phone] Gus Hua MD Nurse Triage 02/13/2025 Travel 01/28/2025 Telephone [facility] [address] [place] [address] Gus Hua MD Med Refill 01/25/2025 Refill [facility] [address] [place] [address] Gus Hua MD 01/15/2025 Refill [facility] [address] [place] [address] Gus Hua MD 12/11/2024 Refill [facility] [address] [place] [address] Gus Hua MD from Last 3 Months Immunizations Immunization Administration Dates Next Due Pneumococcal Conjugate PCV 20 10/22/2022 Tdap 10/22/2022 Social History Tobacco Use Types Packs/Day Years Used Date Smoking Tobacco: Never Smokeless Tobacco: Never Tobacco Cessation:Counseling Given: Not Answered Alcohol Answer Date Recorded Frequency of Alcohol [...] Orientation Straight 01/11/2022 10 :36 AM EDT Last Filed Vital Signs Vital Sign Reading Time Taken Comments Blood Pressure 182/112 02/13/2025 3:13 PM EST Pulse 85 02/13/2025 3:11 PM EST Temperature 36.2 C (97.2 F) 10/08/2024 3:04 PM EDT Respiratory Rate 12 10/08/2024 3:04 PM EDT Oxygen Saturation 97% 02/13/2025 3:11 PM EST room air Inhaled Oxygen Concentration - - Weight 77.2 kg (170 lb 3.2 oz) 10/08/2024 3:04 P M EDT Height 170.2 cm (5' 7 ) 10/08/2024 3:04 PM EDT Body Mass Index 26.66 10/08/2024 3:04 PM EDT Plan of Treatment Health Maintenance Due Date Last Done Comments Alcohol/Substance Use Screening 1957 RSV Patients and Patients Aged 60 years or older (1 - 1-dose 75+ series) 08/30/2018 COVID-19 Vaccine ( season) 2024 01/15/2022, 05/14/2020, 04/23/2020 Influenza Vaccine (#1) 2024 , 02/27/2021, 01/05/2019 SDOH Screening 01/05/2025 01/06/2024 Depression Screening 05/04/2025 05/04/2024, 05/04/19 Tobacco Screening 02/13/2026 02/13/2025 Lipid Panel 01/15/2029 01/16/2024, 04/14, 09/13/2022, Additional history exists DTaP/Tdap/Td Vaccines (2 - Td or Tdap) 10/22/2032 10/22/2022, 02/27/2021 Zoster Vaccines Completed 05/23/2019, 02/14/2019 Pneumococcal Vaccine: 50+ Years Completed 10/22/2022 HIB Vaccines Aged Out No longer eligi ble based on patient's age to complete this topic HPV Vaccines Aged Out No longer eligi ble based on patient's age to complete this topic Hepatitis A Vaccines Aged Out No long er eligible based on patient's age to complete this topic Hepatitis B Vaccines Aged Out No long er eligible based on patient's age to complete this topic IPV Vaccines Aged Out No longer eligi ble based on patient's age to complete this topic Meningococcal B Vaccine Aged Out No l onger eligible based on patient's age to complete this topic Meningococcal Vaccine Aged Out No latrice pan eligible based on patient's age to complete this topic RSV under 20 months Aged Out No longe r eligible based on patient's age to complete this topic Rotavirus Vaccines Aged Out No longer eligible based on patient's age to complete this topic Procedures Procedure Name Priority Date/Time Associated Diagnosis Comments NT-PROBNP Routine 02/13/2025 6:33 PM EST APTT Routine 02/13/2025 6:33 PM EST PROTHROMBIN TIME-INR Routine 02/13/2025 6:33 PM EST XR CHEST 2 VIEWS Routine 02/13/2025 6:03 PM EST VASC US LOWER EXTREMITY VENOUS DUPLEX BILATERAL Routine 02/13/2025 4:46 PM EST LIPID PANEL, STANDARD Routine 01/16/2024 9:49 AM EST Primary hypertension from Last 3 Months or Most Recently Relevant to Health Maintenance Results * Partial Thromboplastin Time, Activated (APTT) (02/13/2025 6:33 PM EST) Partial Thromboplastin Time 29.2 26.7 - 34.1 SEC [facility] 02/13/2025 6:33 PM EST 02/13/2025 6:40 PM EST us Generic External Data Provider LAB BLOOD ORDERAB LES Final Result Performing Organization Address [facility] Co de Phone Number [facility] [address] [place] [phone] * (ABNORMAL) Prothrombin Time-INR (02/13/2025 6:33 PM EST) Prothrombin Time 14.7(H) 11.2 - 13.5 SEC [facility] INTERNATIONAL NORM RATIO 1.2(H) 0.9 - 1.1 [facility] Comment:INTERNATIONAL NORMAL IZED RATIO (INR) REFERENCE RANGES Reference RangeFor patients not on anticoagulant therapy: 0.9 - 1.1INR ranges for oral anticoagulanttherapy:For prevention and treatment of venous thrombosis and pulmonary embolism: 2.0 - 3.0For acute myocardial infarction with aspirin therapy: 2.0 - 3.0For acute myocardial infarction without aspirin therapy: 3.0 - 4.0For patients with mechanical prosthetic heart valves: 2.5 - 3.5 02/13/2025 6:33 PM EST 02/13/2025 6:40 PM EST Generic External Data Provider LAB BLOOD ORDERAB LES Final Result Performing Organization Address [facility] Co de Phone Number [facility] [address] [place] [phone] * XR Chest 2 Views (02/13/2025 6:03 PM EST) Anatomical Region Laterality Modality Chest Radiographic Gracie ging 02/13/2025 6:03 PM EST Narrative 02/13/2025 6:05 PM EST [address] [address] XRay Report Signed Patient: Waqas Birch MR#: [id number] [birth year] : 1945 Acct:[id number] Age/Sex: 79 / M ADM Date: 02/13/25 Loc: HO.ED Attending Dr: Ordering Physician: Alexandre Stephenson Date of Service: 02/13/25 Procedure(s): XR chest 2V Accession Number(s): [id number] cc: Alexandre Stephenson; Gus Hua MD Reason for Exam: Chest pain CLINICAL HISTORY: Chest pain 2 view chest x-ray Comparison: None provided Findings: No consolidation or pleural effusion. Normal size heart. No acute fracture. IMPRESSION: 1. No acute findings. This document has been electronically signed by: Yvette Burnham MD on 02/13/2025 18:03:27 Dictated By: Yvette Burnham MD Signed By: <Electronically signed by Yvette Burnham MD in OV> 02/13/251803 DD/ 180 TD/TT: 02/13/251802 Pack Room Operator: Procedure Note Donotuseinterpreter, Image - 02/13/2025 [place] [address] XRay Report Signed Patient: Sea Birch#: [id number] [birth year] : 4Acct:[id number] Age/Sex: 79 / MADM Date: 02/13/25 Loc: .ED Attending Dr: Ordering Physician: Alexandre Stephenson Date of Service: 02/13/25 Procedure(s): XR chest 2V Accession Number(s): [id number] cc: Alexandre Stephenson; Gus Hua MD Reason for Exam: Chest pain CLINICAL HISTORY: Chest pain 2 view chest x-ray Comparison: None provided Findings: No consolidation or pleural effusion. Normal size heart. No acute fracture. IMPRESSION: 1. No acute findings. This document has been electronically signed by: Yvette Burnham MD on 02/13/2025 18:03:27 Dictated By: Yvette Burnham MD Signed By: <Electronically signed by Yvette Burnham MD in OV> 02/13/25 180 DD/ 180 TD/TT: 02/13/251802 Pack Room Operator: [facility] External Provider IMG XR PROCEDURES Final Result * VASC US Lower Extremity Venous Duplex Bilateral (02/13/2025 4:46 PM EST) 02/13/2025 4:46 PM EST Narrative [facility] - 02/13/2025 5:14 PM EST [address] [address] Ultrasound Report Signed Patient: Waqas Birch MR#: [id number] [birth year] : 1945 Acct:[id number] Age/Sex: 79 / M ADM Date: 02/13/25 Loc: .ED Attending Dr: Ordering Physician: Alexandre Stephenson Date of Service: 02/13/25 Procedure(s): US venous duplex LE BI Accession Number(s): [id number] cc: Alexandre Stephenson; Gus Hua MD Reason for Exam: bilateral leg swelling EXAMINATION: US TRIPLEX LOWER EXTREMITY, BILATERAL CLINICAL INFORMATION: Bilateral lower extremity swelling COMPARISON: None available. TECHNIQUE: Color-flow triplex imaging with spectral analysis and compression Doppler were performed on the bilateral lower extremities. FINDINGS: Respiratory variation, normal compression and augmented flow are noted throughout the bilateral lower extremities. The visualized common femoral vein, superficial femoral vein, profunda femoral vein, popliteal vein and midcalf peroneal and posterior tibial venous segments show no evidence of deep venous thrombosis bilaterally. US/US venous duplex LE BI IMPRESSION: No evidence of deep venous thrombosis involving the bilateral lower extremities. Electronically signed by: Fidencio Pineda MD 02/13/2025 05:11 PM EST Dictated By: Fidencio Pineda MD Signed By: <Electronically signed by Fidencio Pineda MD in OV> 02/13/25 1711 DD/ 1646 TD/TT: 02/13/25 1654 Pack Room Operator: Procedure Note Donotuseinterpreter, Image - 02/13/[address] [address] Ultrasound Report Signed Patient: Sea Birch#: [id number] [birth year] : 1946Acct:[id number] Age/Sex: 79 / MADM Date: 02/13/25 Loc: HO.ED Attending Dr: Ordering Physician: Alexandre Stephenson Date of Service: 02/13/25 Procedure(s): US venous duplex LE BI Accession Number(s): [id number] cc: Alexandre Stephenson; Gus Hua MD Reason for Exam: bilateral leg swelling EXAMINATION: US TRIPLEX LOWER EXTREMITY, BILATERAL CLINICAL INFORMATION: Bilateral lower extremity swelling COMPARISON: None available. TECHNIQUE: Color-flow triplex imaging with spectral analysis and compression Doppler were performed on the bilateral lower extremities. FINDINGS: Respiratory variation, normal compression and augmented flow are noted throughout the bilateral lower extremities. The visualized common femoral vein, superficial femoral vein, profunda femoral vein, popliteal vein and midcalf peroneal and posterior tibial venous segments show no evidence of deep venous thrombosis bilaterally. US/US venous duplex LE BI IMPRESSION: No evidence of deep venous thrombosis involving the bilateral lower extremities. Electronically signed by: Fidencio Pineda MD 02/13/2025 05:11 PM EST Dictated By: Fidencio Pineda MD Signed By: <Electronically signed by Fidencio Pineda MD in OV> 02/13/25 1711 DD/ 1646 TD/TT: 02/13/25 1654 Pack Room Operator: [facility] External Provider CV VASC ULAR PROCEDURES Final Result [facility] [address] [place] [phone] * Lipid Panel, Standard (01/16/2024 9:49 AM EST) Triglycerides 81 <150 mg/dL [facility] Comment:Desirable Triglyceri de: less than 150 mg/dLBorderline High Triglyceride 150-199 mg/dLHigh Triglyceride: 200-499 mg/dLVery High Triglyceride: greater than or equal to 5OO mg/dL Cholesterol 126 <200 mg/dL [facility] Comment:Desirable Cholestero l: less than 200 mg/dLBorderline High Cholesterol: 200-239 mg/dLHigh Cholesterol: greater than 239 mg/dL LDL Cholesterol Calculated 65 <100 mg/dL [facility] Comment:Desirable LDL: less than 100 mg/dLNear Optimal/Above Optimal LDL: 110- 129 mg/dLBorderline High LDL: 130-159 mg/dLHigh LDL: 160-189 mg/dLVery High LDL: greater than or equal to 190 mg/dL HDL Cholesterol 45 >40 mg/dL [facility] Comment:Desirable HDL: great er than 40 mg/dL Note: This HDL assay may give artificially low results in patients with liver disease. Blood Venous blood specimen / Unknown 01/16/2024 9:49 AM EST 01/16/2024 2:39 PM EST Gus Prieto MD LAB BLOOD ORDERABL ES Final Result Performing Organization Address City/State/[facility] Co de Phone Number [facility] [address] [place] [phone] from Last 3 Months or Most Recently Relevant to Health Maintenance Insurance STANDARD Care Teams Painter Ordnance Relationship Specialty Start Date End Date Gus Hua MD [address] [place] [phone] PCP - General Internal Medicine 12/19/18
--- OUTSIDE RECORDS SUMMARY | 2025-02-13 19:12 | XMS_ITS | Encounter Summary ---
Author Organization [employer] Address [address] [address] Care Team Providers Care Utility Bill Collector Name Role Phone Gus Hua MD Primary Care Prov ider Reason for Visit * Reason Onset Date Comments Nurse Triage 07/05/2023 Encounter Details Date Type Department Care Team (Late st Contact Info) Description 07/05/2023 Telephone [facility] [address] [place] [address] Gus Hua MD [address] [place] [address] Nurse Triage Social History Tobacco Use Types Packs/Day Years Used Date Smoking Tobacco: Never Smokeless Tobacco: Never Depression Answer Date Recorded Patient Health Questionnaire-9 Score 0 04/29/2023 Patient Health Questionnaire-9 Score 0 04/29/2023 Last PHQ-9: Questionnaire Data Not on file 0 04/29/2023 Housing Stability Answer Date Recorded What is your housing situation today? I have kvngsunshine perry 01/14/[address] you li ve. Do you have problems with any of the following? None of the above 01/14/2023 Food Insecurity Answer Date Recorded Within the past 12 months, y ou worried that your food would run out before you got money to buy more: Never True 01/14/2023 Within the past 12 months,th e food you bought just didn't last and you didn't have enough money to get more: Never True 05/2022 Transportation Answer Date Recorded In the past 12 months, has l ack of transportation kept you from medical appts, meetings, work or from getting things needed for daily living? No 01/14/2023 Utilities Answer Date Recorded In the past 12 months, has t he electric, gas, oil or water company threatened to shut off services in your home? No 01/14/2023 Depression Answer Date Recorded Patient Health Questionnaire-2 Score 0 04/29/2023 Sex and Gender Information Value Date Recorded Sex Assigned at Male 01/11/2022 10:36 AM EDT Legal Sex Male 10:36 AM EDT Gender Identity Male 01/11/2022 10:36 AM EDT Sexual Orientation Straight 01/11/2022 10 :36 AM EDT documented as of this encounter Miscellaneous Notes * Telephone Encounter - Janice Canales RN - 07/05/2023 1:05 PM EDT Triage call Pt son, ASHKAN Garcia, answered phone , Pt is isolated in bedroom upstairs . Pt wokeup with cold like symptoms this morning and home Covid test was done and positive. Other family members have had Covid recently. Pt symptoms are mild, slight cough, headache , neg for fever and neg for difficulty breathing. Pt son is advised if fever of 103 or higher , difficulty breathing with chest pain/pressure occur ED evaluation would be needed. Other menezes treat like the flu. Increase liquids to 6-8 glasses daily, warm drinks , broth, decaf tea with honey/lemon are good. OTC cough syrups with suppressant quality are good, honey also 1-2 tsp is effective for cough. Cough drops , tylenol/motrin for headache, body aches. Coughing spells can be helped by hot steamy shower air in bathroom or humidifier. Isolation for 5 days which would start tomorrow 07/06/23 and if no fever for 24 hrs andnot taking tylenol/motrin for fever for 24 hrs with symptoms subsiding may come off isolation. Televisit with PCP today at 230pm for further care. Insurance is verified as active prior to booking. Protocol Used: COVID-19 - Diagnosed or Suspected (Adult) Protocol-Based Disposition: Home Care Positive Triage Question: * COVID-19 diagnosed by positive lab test (e.g., PCR, rapid self-test kit) and mild symptoms (e.g.,cough, fever, others) and no complications or SOB * All higher-acuity triage questions were negative Care Advice Discussed: * Reassurance and Education - Positive COVID-19 Lab Test and Mild Symptoms * General Care Advice for COVID-19 Symptoms * Cough Medicines * Humidifier * Coughing Spells * Pain and Fever Medicines * Reasons To Call Back - Fever over 103 F (39.4 C) - Fever lasts over 3 days - Fever returns after being gone for 24 hours - Chest pain or difficulty breathing occurs - You become worse * COVID-19 - How to Protect Others - When You Are Sick With COVID-19 * Telephone Encounter - Mary Carmen Muhammad - 07/05/2023 12:35 PM EDT Symptoms: COVID-19 Exposure (No Symptoms), Cough, Headache Outcome: Schedule an urgent appointment (within 4 hours) or talk to a nurse or provider soon Reason: Started within the past 3 days, requesting medication The caller accepted this outcome Please contact son at [phone] documented in this encounter Plan of Treatment Not on file documented as of this encounter Visit Diagnoses Not on filedocumented in this encounter Additional Health Concerns Assessment Noted Time PHQ-9 Depression Total Score: 0 04/29/19 24 10:42 AM EST documented as of this encounter Care Teams Utility Bill Collector Relationship Specialty Start Date End Date Gus Hua MD [address] [place] [phone] PCP - General Internal Medicine 12/19/18 documented as of this encounter
--- OUTSIDE RECORDS SUMMARY | 2025-02-13 19:12 | XMS_ITS | Encounter Summary ---
Author Organization [employer] Address [address] [place] [address] Care Team Providers Care Sap Project Manager Name Role Phone Gus Hua MD Primary Care Prov ider Reason for Visit * Reason Onset Date Comments Med Refill 11/29/2023 Encounter Details Date Type Department Care Team ([facility] st Contact Info) Description 11/29/2023 Telephone [facility] [address] [place] [address] Gus Hua MD [address] [place] [address] Med Refill Social History Tobacco Use Types [...] Telephone Encounter - Kenia Claros LPN - 11/29/2023 3:35 PM EDT Medication pended to PCP. * Telephone Encounter - Brigette Ramirez - 11/29/2023 3:18 PM EDT TC from pt requesting medication refill. Medications needing refill : losartan (Cozaar) 100 MG tablet clopidogrel (Plavix) 75 MG tablet atorvastatin (Lipitor) 40 MG tablet metoprolol succinate XL (Toprol-XL) 25 MG 24 hr tablet To be sent to: [facility] documented in this encounter Plan of Treatment Not on file documented as of this encounter Visit Diagnoses Not on filedocumented in this encounter Additional Health Concerns Assessment Noted Time PHQ-9 Depression Total Score: 0 04/29/19 24 10:42 AM EST documented as of this encounter Care Teams Sap Project Manager Relationship Specialty Start Date End Date Gus Hua MD [address] [place] [address] PCP - General Internal Medicine 12/19/18 documented as of this encounter
--- OUTSIDE RECORDS SUMMARY | 2025-02-13 19:12 | XMS_ITS | Encounter Summary ---
Author Organization [employer] Address [address] [address] Care Team Providers Care Product Support Analyst Name Role Phone Gus Hua MD Primary Care Prov ider Encounter Details Date Type Department Care Team ([facility] Contact Info) Description 01/06/2024 Orders Only [facility]S [address] [place], [place] [phone] Gus Hua MD [address] [place] [address] Social History Tobacco Use Types Packs/Day Years [...] Recorded Patient Health Questionnaire-2 Score 0 04/29/2023 Internet Access Answer Date Recorded Internet Access Q1 Yes 01/06/2024 Internet Access Q2 Not on file 01/06/2024 Sex and Gender Information Value Date Recorded Sex Assigned at Male 01/11/2022 10:36 AM EDT Legal Sex Male 10:36 AM EDT Gender Identity Male 01/11/2022 10:36 AM EDT Sexual Orientation Straight 01/11/2022 10 :36 AM EDT documented as of this encounter Plan of Treatment Not on file documented as of this encounter Visit Diagnoses Not on filedocumented in this encounter Additional Health Concerns Assessment Noted Time PHQ-9 Depression Total Score: 0 04/29/19 24 10:42 AM EST documented as of this encounter Care Teams Product Support Analyst Relationship Specialty Start Date End Date Gus Hua MD [address] [place] [address] PCP - General Internal Medicine 12/19/18 documented as of this encounter
--- OUTSIDE RECORDS SUMMARY | 2025-02-13 19:12 | XMS_ITS | Encounter Summary ---
Author Organization [employer] Address [address] [address] Care Team Providers Care Pilot Captain Name Role Phone Gus Hua MD Primary Care Prov ider Reason for Visit * Reason Onset Date Comments Nurse Triage 02/13/2025 Encounter Details Date Type Department Care Team (Late st Contact Info) Description 02/13/2025 Telephone [facility] [address] [place] [address] Gus Hua MD [address] [place] [address] Nurse Triage Social History Tobacco Use Types [...] encounter Miscellaneous Notes * Telephone Encounter - Yakelin Cramer RN - 02/13/2025 3:59 PM EST Assessment: Patient presents to [facility] c/o Crushing Right sided chest pain, SOB, bilateral ext swelling x 2 days. Symptoms have been present for days. Symptoms are constant. VS as follows (if applicable): Temp 97.4 orally HR 81 regular rate and rhythm Resp 16 none BP 184/119 left Arm; 181/114 right arm Device: Automatic Cuff Size: regular, 182/112 left arm manual pressure O2 sat 97 % on room air Pain level: 10, Location: right sided chest pain Lung sounds (if applicable) Clear to auscultation bilaterally, Location: throughout Allergies[1] Current Medications[2] Patient Active Problem List Diagnosis Date Noted Mixed hyperlipidemia 04/29/2023 Chronic bilateral low back pain without sciatica 12/01/2022 Stage 3a chronic kidney disease (CMS/HCC) ([facility]) 08/10/2022 Atrial fibrillation (CMS/HCC) ([facility]) 08/07/2021 Cerebrovascular accident (CMS/HCC) ([facility]) 08/07/2021 Hypertensive disorder 08/07/2021 Arteriosclerosis of artery of extremity 12/05/2020 In Office Testing EKG Atrial fibrillation Plan of care: Report to Dr. Park Provider evaluation: Yes Call to expect placed to [[facility], verbal reported given to Alexandre SNOWDEN in triage. Patient arriving by private car. Yakelin Cramer RN [1] No Known Allergies [2] Current Outpatient Medications Medication Sig Dispense Refill acetaminophen (Arthritis Pain Relief) 650 MG ER tablet Take 1 tablet (650 mg) by mouth every 8 (eight) hours if needed for mild pain. Do not crush, chew, or split. 90 tablet 1 amLODIPine (Norvasc) 2.5 MG tablet TAKE ONE TABLET BY MOUTH EVERY DAY 90 tablet 3 apixaban (Eliquis) 5 MG tablet TAKE 1 TABLET BY MOUTH TWICE A DAY 180 tablet 1 atorvastatin (Lipitor) 40 MG tablet TAKE ONE TABLET BY MOUTH EVERY DAY 90 tablet 3 clopidogrel (Plavix) 75 MG tablet TAKE ONE TABLET DAILY 90 tablet 1 hydrALAZINE (Apresoline) 50 MG tablet Take 1 tablet (50 mg) by mouth 2 times daily. 180 tablet 3 hydroCHLOROthiazide (HYDRODiuril) 25 MG tablet Take 1 tablet (25 mg) by mouth Once per day. 90 tablet 3 lidocaine-prilocaine (Emla) 2.5-2.5 % cream Apply topically 2 times daily. 300 g 1 losartan (Cozaar) 100 MG tablet TAKE ONE TABLET BY MOUTH EVERY DAY 90 tablet 3 metoprolol succinate XL (Toprol-XL) 100 MG 24 hr tablet Take 1 tablet (100 mg) by mouth 2 times daily. 180 tablet 3 polyethylene glycol, PEG, 3350 (Glycolax) 17 GM/SCOOP powder STIR 17GM INTO 8 OUNCES OF WATER, OR JUICE, AND DRINK DAILY NEEDED / DIRECTED IN THE MORNING 510 g 0 No current facility-administered medications for this visit. documented in this encounter Plan of Treatment Not on file documented as of this encounter Visit Diagnoses Not on filedocumented in this encounter Additional Health Concerns Assessment Noted Time PHQ-9 Depression Total Score: 0 05/04/19 25 3:25 PM EST documented as of this encounter Care Teams Pilot Captain Relationship Specialty Start Date End Date PolkGus Chauhan MD [address] [place] [phone] PCP - General Internal Medicine 12/19/18 documented as of this encounter
--- OUTSIDE RECORDS SUMMARY | 2025-02-13 19:12 | XMS_ITS | Encounter Summary ---
Author Organization [employer] Address 75 [facility] 7 [place] [address] Care Team Providers Care It Operations Specialist Name Role Phone Gus Hua MD Primary Care Prov ider Encounter Details Date Type Department Care Team (Latest Contact Info) Description 02/13/2025 Travel Social History Tobacco Use Types Packs/Day Years [...] documented as of this encounter Care Teams It Operations Specialist Relationship Specialty Start Date End Date Gus Hua MD [address] [place] [phone] PCP - General Internal Medicine 12/19/18 documented as of this encounter
--- OUTSIDE RECORDS SUMMARY | 2025-02-13 19:12 | XMS_ITS | Encounter Summary ---
Author Organization [employer] Address [address] [place] [address] Care Team Providers Care Dubbing Machine Operator Name Role Phone Gus Hua MD Primary Care Prov ider Reason for Visit * Reason Comments Med Refill Encounter Details Date Type Department Care Team ([facility] st Contact Info) Description 07/29/2022 Refill [facility] [address] [place] [address] Gus Hua MD [address] [place] [address] Social History Tobacco Use Types Packs/Day Years Used Date Smoking Tobacco: Never Assessed Sex and Gender Information Value Date Recorded Sex Assigned at Male 01/11/2022 10:36 AM EDT Legal Sex Male 10:36 AM EDT Gender Identity Male 01/11/2022 10:36 AM EDT Sexual Orientation Straight 01/11/2022 10 :36 AM EDT documented as of this encounter Plan of Treatment Not on file documented as of this encounter Visit Diagnoses Not on filedocumented in this encounter Care Teams Dubbing Machine Operator Relationship Specialty Start Date End Date Gus Hua MD [address] [place] [address] PCP - General Internal Medicine 12/19/18 documented as of this encounter
--- OUTSIDE RECORDS SUMMARY | 2025-02-13 19:12 | XMS_ITS | Encounter Summary ---
Author Organization [employer] Address 75 [facility] 7 [place] [address] Care Team Providers Care Air Cargo Agent Name Role Phone Gus Hua MD Primary Care Prov ider Encounter Details Date Type Department Care Team (Late st Contact Info) Description 02/13/2025 Orders Only [facility] External Provider, [facility] Social History Tobacco Use Types Packs/Day Years [...] as of this encounter Plan of Treatment Pending Results Name Type Priority Associated Diagnoses Date /Time NT-proBNP Lab Routine 02/13/2025 6:3 3 PM EST documented as of this encounter Procedures Procedure Name Priority Date/Time Associated Diagnosis Comments NT-PROBNP Routine 02/13/2025 6:33 PM EST APTT Routine 02/13/2025 6:33 PM EST PROTHROMBIN TIME-INR Routine 02/13/2025 6:33 PM EST XR CHEST 2 VIEWS Routine 02/13/2025 6:03 PM EST VASC US LOWER EXTREMITY VENOUS DUPLEX BILATERAL Routine 02/13/2025 4:46 PM EST documented in this encounter Results * Partial Thromboplastin Time, Activated (APTT) (02/13/2025 6:33 PM EST) Partial Thromboplastin Time 29.2 26.7 - 34.1 SEC [facility] 02/13/2025 6:33 PM EST 02/13/2025 6:40 PM EST us Generic External Data Provider LAB BLOOD ORDERAB LES Final Result [facility] [address] [place] [phone] * (ABNORMAL) Prothrombin Time-INR (02/13/2025 6:33 PM EST) Prothrombin Time 14.7(H) 11.2 - 13.5 SEC [facility] INTERNATIONAL NORM RATIO 1.2(H) 0.9 - 1.1 [facility] Comment:INTERNATIONAL NORMAL IZED RATIO (INR) [...] Provider LAB BLOOD ORDERAB LES Final Result [facility] [address] [place] [phone] * XR Chest 2 Views (02/13/2025 6:03 PM EST) Anatomical Region Laterality Modality Chest Radiographic Gracie ging 02/13/2025 6:03 PM EST Narrative 02/13/2025 6:05 PM EST [address] [address] XRay Report Signed Patient: Waqas Birch MR#: [id number] [birth year] : 1945 Acct:[id number] Age/Sex: 79 / M ADM Date: 02/13/25 Loc: .ED Attending Dr: Ordering Physician: Alexandre Stephenson Date of Service: 02/13/25 Procedure(s): XR chest 2V Accession Number(s): [id number] cc: Alexandre Stephenson; Gus Hua MD Reason [...] Yvette Burnham MD in OV> 02/13/251803 DD/ 02 TD/TT: 02/13/251802 Welding Operator: Procedure Note Charisseinterpreter, Image - 02/13/2025 [place] [address] XRay Report Signed Patient: Sea Birch#: [id number] [birth year] : 4Acct:[id number] Age/Sex: 79 / MADM Date: 02/13/25 Loc: .ED Attending Dr: Ordering Physician: Alexandre Stephenson Date of Service: 02/13/25 Procedure(s): XR chest 2V Accession Number(s): [id number] cc: Alexandre Stephenson; Gus Hua MD Reason [...] Burnham MD in OV> 02/13/25 180 DD/ 02 TD/TT: 02/13/251802 Welding Operator: [facility] External Provider IMG XR PROCEDURES Final Result * VASC US Lower Extremity Venous Duplex Bilateral (02/13/2025 4:46 PM EST) 02/13/2025 4:46 PM EST Narrative [facility] - 02/13/2025 5:[address] [address] Ultrasound Report Signed Patient: Waqas Birch MR#: [id number] 92 : 1945 Acct:[id number] Age/Sex: 79 / M ADM Date: 02/13/25 Loc: .ED Attending Dr: Ordering Physician: Alexandre Stephenson Date of Service: 02/13/25 Procedure(s): US venous duplex LE BI Accession Number(s): [id number] cc: Alexandre Stephenson; Gus Hua MD Reason [...] by: Fidencio Pineda MD 02/13/2025 05:11 PM [facility] Dictated By: Fidencio Pineda MD Signed By: <Electronically signed by Fidencio Pineda MD in OV> 02/13/25 1711 DD/ 1646 TD/TT: 02/13/25 1654 Welding Operator: Procedure Note Donotuseinterpreter, Image - 02/13/[address] [address] Ultrasound Report Signed Patient: Waqas BirchMR#: [id number] [birth year] : 1945cct:[id number] Age/Sex: 79 / MADM Date: 02/13/25 Loc: .ED Attending Dr: Ordering Physician: Alexandre Stephenson Date of Service: 02/13/25 Procedure(s): US venous duplex LE BI Accession Number(s): [id number] cc: Alexandre Stephenson; Gus Hua MD Reason [...] Fidencio Pineda MD 02/13/2025 05:11 PM EST RP Dictated By: Fidencio Pineda MD Signed By: <Electronically signed by Fidencio Pineda MD in OV> 02/13/25 1711 DD/ 1646 TD/TT: 02/13/25 1654 Welding Operator: [facility] External Provider CV VASC ULAR PROCEDURES Final Result [facility] [address] [place] [address] documented in this encounter Visit Diagnoses Not on filedocumented in this encounter Additional Health Concerns Assessment Noted Time PHQ-9 Depression Total Score: 0 05/04/19 25 3:25 PM EST documented as of this encounter Care Teams Air Cargo Agent Relationship Specialty Start Date End Date Gus Hua MD [address] [place] [address] PCP - General Internal Medicine 12/19/18 documented as of this encounter
--- OUTSIDE RECORDS SUMMARY | 2025-02-13 19:12 | XMS_ITS | Encounter Summary ---
Author Organization [employer] Address [address] [address] Care Team Providers Care Applied Psychology Teacher Name Role Phone Gus Hua MD Primary Care Prov ider Reason for Visit * Reason Comments Med Refill Encounter Details Date Type Department Care Team ([facility] st Contact Info) Description 12/11/2024 Refill [facility] [address] [place], [place] [phone] Gus Hua MD [address] [place] [address] Social History Tobacco Use Types Packs/Day Years [...] documented as of this encounter Care Teams Applied Psychology Teacher Relationship Specialty Start Date End Date Gus Hua MD [address] [place] [phone] PCP - General Internal Medicine 12/19/18 documented as of this encounter
--- OUTSIDE RECORDS SUMMARY | 2025-02-13 19:12 | XMS_ITS | Encounter Summary ---
Author Organization [employer] Address [address] [place] [address] Care Team Providers Care Certified Nursing Assistant Instructor Name Role Phone Gus Hua MD Primary Care Prov ider Encounter Details Date Type Department Care Team ([facility] st Contact Info) Description 12/13/2022 Telephone [facility] [address] [place] [address] Gus Hua MD [address] [place] [address] Social History Tobacco Use Types Packs/Day Years Used Date Smoking Tobacco: Never Smokeless Tobacco: Never Depression Answer Date Recorded Patient Health Questionnaire-9 Score 0 08/10/2022 Depression Answer Date Recorded Patient Health Questionnaire-2 Score 0 08/10/2022 Sex and Gender Information Value Date Recorded [...] Noted Time PHQ-9 Depression Total Score: 0 08/11/19 23 9:49 AM EDT documented as of this encounter Care Teams Certified Nursing Assistant Instructor Relationship Specialty Start Date End Date Gus Hua MD [address] [place] [address] PCP - General Internal Medicine 12/19/18 documented as of this encounter
--- OUTSIDE RECORDS SUMMARY | 2025-02-13 19:13 | XMS_ITS | Clinical Summary ---
Author Organization [facility] Address [address] [place] [address] Care Team Providers Care Sifter And Miller Name Role Phone Gus Hua MD Primary Care Prov ider Allergies No known active allergies Medications atorvastatin (LIPITOR) 40 mg tablet Take 40 mg by mouth daily. 08/22/2019 Active clopidogreL (PLAVIX) 75 mg tablet Take 75 mg by mouth daily. 08/22/2019 Active hydroCHLOROthia zide (MICROZIDE) 12.5 mg capsule Take 12.5 mg by mouth daily. 08/22/2019 Active losartan (COZAAR) 100 mg tablet Take 100 mg by mouth daily. 08/22/2019 Active Eliquis 5 mg tablet Take 5 mg by mouth 2 times a day. 12/01/2020 Active diclofenac (VOLTAREN) 1% gel APPLY TWO grm's TO THE AFFECTED AREA(s) THREE TIMES DAILY 11/18/2020 Active docusate sodium (COLACE) 100 mg capsule Take 100 mg by mouth 2 times a day. Active amLODIPine (NORVASC) 5 mg tablet Take 2 tablets (10 mg total) by mouth daily. 60 tablet 5 12/26/2020 Active metoprolol succinate XL (TOPROL XL) 25 mg tablet Take 3 tablets (75 mg total) by mouth once a day. 90 tablet 5 12/26/2020 Active Active Problems Problem Noted Date Diagnosed Date Atherosclerosis of arteries of extremities 12/05 Assessment & Plan (12/05/2020 2:02 PM EDT): 75M PMH afib, HTN, HLD, CVA with [...] us with any additional questions or concerns. Social History Tobacco Use Types Packs/Day Years Used Date Smoking Tobacco: Never Smokeless Tobacco: Never Sex and Gender Information Value Date Recorded Sex Assigned at Not on file Legal Sex Male 10:10 AM EDT Gender Identity Not on file Sexual Orientation Not on file Last Filed Vital Signs Vital Sign Reading Time Taken Comments Blood Pressure 148/74 06/12/2021 8:30 AM EDT Pulse 103 12/26/2020 11:17 AM EDT Temperature - - Respiratory Rate 16 12/26/2020 11:17 AM EDT Oxygen Saturation 98% 12/26/2020 11:17 AM EDT Inhaled Oxygen Concentration - - Weight 77.1 kg (170 lb) 06/12/2021 8:30 AM EDT Height 172.7 cm (5' 8 ) 06/12/2021 8:30 AM EDT Body Mass Index 25.85 06/12/2021 8:30 AM EDT Plan of Treatment Health Maintenance Due Date Last Done Comments Pneumococcal Vaccine: 50+ Years (1 of 1 - PCV) 08/30/1993 RSV Vaccine (60+ years old and patients) (1 - 1-dose 75+ series) 08/30/2018 DTaP,Tdap,and Td Vaccines (1 - Tdap) 02/28/2021 02/27/2021 Alcohol/Substance Use Screening 03/14/2024 Health Care Proxy Review 03/14/2024 Influenza Vaccine (#1) 2024 , 01/05/2019 COVID-19 Vaccine (3 - 2025-2 6 season) 2024 05/14/2020, 04/23/2020 Zoster Vaccines Completed 05/23/2019, 02/14/2019 Hepatitis B Vaccines Aged Out No long er eligible based on patient's age to complete this topic Insurance [facility] Care Teams Sifter And Miller Relationship Specialty Start Date End Date Gus Hua MD [address] [place] [phone] PCP - General 08/29/19
[2025-02-13 19:15] LABS: Alanine Aminotransferase 29 U/L (0-40); Albumin Level 4.6 g/dL (3.5-5.0); Alkaline Phosphatase 62 U/L (39-117); Anion Gap 14 (12-20); Aspartate Amino Transferase 25 U/L (5-37); Blood Urea Nitrogen 18 mg/dL (9-16); Calcium 9.6 mg/dL (8.4-10.2); Carbon Dioxide 22 mmol/L (22-29); Chloride 107 mmol/L (96-108); Creatinine Clr Calc Pharmacy 45.1; Estimated Glomerular Filt Rate 58; Potassium 4.8 mmol/L (3.3-5.1); Sodium 138 mmol/L (135-145); Total Protein 7.9 g/dL (6.5-8.0)
[2025-02-13 19:16] LABS: Troponin-I High Sensitivity < 2.7 ng/L (<3.5-35.0)
[2025-02-13 19:17] LABS: Hematocrit 46.7 % (42.0-52.0); Hemoglobin 15.7 g/dl (14.0-18.0); Imm Gran Abs Auto 0.05 X10*3/uL (0.00-0.03); Imm Gran Pct Auto 0.7 % (0.0-0.4); Lymphocytes Absolute Auto 2.1 X10*3/uL (1.2-4.9); Mean Corpuscular HGB Conc 33.6 g/dl (31.0-36.0); Mean Corpuscular Hemoglobin 32.8 pg (27.0-33.0); Mean Corpuscular Volume 97.5 fL (80.0-98.0); NRBC Abs Auto 0.000 X10*3/uL (0.0-0.012); NRBC Pct Auto 0.0 /100WBC (0.0-0.2); Platelet Count 185 X10*3/uL (160-400); Red Blood Count 4.79 X10*6/uL (4.60-5.80); White Blood Count 7.2 X10*3/uL (4.8-10.8)
[2025-02-13 19:28] LABS: Resp Syncy Virus RNA Qual PCR NEGATIVE (Negative); SARS COV2 PCR INHOUSE NEGATIVE (Negative)
[2025-02-13 21:34] VITALS: BP 154/92; PULSE 82; RESP 20; TEMP 36.6; O2SAT 98
[2025-02-13 21:51] LABS: Troponin-I High Sensitivity 3.3 ng/L (<3.5-35.0)
[2025-02-13 22:19] VITALS: BP 154/92; PULSE 82; RESP 20; TEMP 36.6; O2SAT 98
== END 2025-02-13 22:19 | disposition home or self-care (01) ==
PROVIDERS: Physician Assistant; Emergency Provider Emergency Medicine; PCP Internal Medicine
DX: R07.9 Chest pain, unspecified (principal); R60.0 Localized edema; R06.02 Shortness of breath; R05.9 Cough, unspecified; I10 Essential (primary) hypertension; I48.91 Unspecified atrial fibrillation; Z79.01 Long term (current) use of anticoagulants; Z03.818 Encounter for observation for suspected exposure to other biological agents ruled out
CPT/HCPCS: 36415; 71046; 80053; 83880; 84484; 85025; 85610; 85730; 87637; 93005; 93970; 99284

== ENCOUNTER → 2025-02-13 16:09 | Outpatient (BNV) | payer MEDICAID, SELFPAY | PROVIDERS: Emergency Provider Emergency Medicine; PCP Internal Medicine; Visit Provider Internal Medicine | DX: I48.91 Unspecified atrial fibrillation (principal) | CPT/HCPCS: 93010 ==

== ENCOUNTER → 2025-02-13 16:27 | Outpatient (BNV) | payer MEDICAID, SELFPAY | PROVIDERS: PCP Internal Medicine; Visit Provider Radiology Diagnostic Radiology | DX: R22.43 Localized swelling, mass and lump, lower limb, bilateral (principal); R07.9 Chest pain, unspecified | CPT/HCPCS: 71046; 93970 ==